=== PATIENT | male | born 1965 | race Caucasian/White ===

== ENCOUNTER 2024-07-21 14:39 | Outpatient (OUT) | payer OTHER, SELFPAY ==
[2024-07-21 15:09] LABS: Basophils Percent Auto 0.4 % (0.2-2.0); Eosinophils Absolute Auto 0.3 10^3/uL (0.0-0.7); Eosinophils Percent Auto 3.1 % (0.9-7.0); Hematocrit 48.5 % (42.0-54.0); Hemoglobin 16.3 g/dL (14.0-18.0); Immature Granulocytes Abs Auto 0.06 10^3/uL (0.00-0.03); Immature Granulocytes Pct Auto 0.7 % (0.0-0.5); Lymphocytes Absolute Auto 1.8 10^3/uL (1.2-3.8); Mean Corpuscular HGB Conc 33.6 g/dL (29.9-35.2); Mean Corpuscular Hemoglobin 28.4 pg (25.9-34.0); Mean Corpuscular Volume 84.6 fL (80.0-94.0); Mean Platelet Volume 9.5 fL (9.5-13.5); Monocytes Absolute Auto 0.7 10^3/uL (0.3-0.8); Monocytes Percent Auto 7.3 % (1.7-12.0); Neutrophils Absolute Auto 6.3 10^3/uL (1.4-6.5); Neutrophils Percent Auto 68.5 % (43.0-75.0); Platelet Count 207 10^3/uL (150-450); Red Blood Count 5.73 10^6/uL (4.70-6.10); Red Cell Distribution Width 12.8 % (11.0-15.0); White Blood Count 9.2 10^3/uL (4.0-11.0)
[2024-07-21 15:48] LABS: Alanine Aminotransferase 30 U/L (16-63); Albumin Globulin Ratio 1.2; Albumin Level 3.8 g/dL (3.4-5.0); Alkaline Phosphatase 83 U/L (46-116); Anion Gap 10.2; Aspartate Amino Transferase 17 U/L (15-37); Bilirubin Total 0.4 mg/dL (0.2-1.0); Calcium 8.6 mg/dL (8.5-10.1); Chloride 105 mmol/L (98-107); Chol HDL Ratio 4.3; Cholesterol 199 mg/dL (<=200); Estimated GFR (African America 54 (>=60 mL/min/1.73m^2); Estimated GFR (Non-African Ame 44 (>=60 mL/min/1.73m^2); Globulin 3.3 g/dL; Glucose 86 mg/dL (74-106); HDL Cholesterol 46 mg/dL (40-60); Potassium 4.2 mmol/L (3.5-5.1); Sodium 142 mmol/L (136-145); Thyroid Stimulating Hormone 1.882 uIU/mL (0.358-3.740); Total Protein 7.1 g/dL (6.4-8.2); Triglycerides 90 mg/dL (<=150)
[2024-07-21 15:54] LABS: BUN Creatinine Ratio 16.3
[2024-07-21 15:59] LABS: Prostate Specific Antigen Scrn 0.61 ng/mL (<=4.00)
== END 2024-07-21 14:40 | disposition home or self-care (01) ==
LOC: LAB 14:42
PROVIDERS: PCP Internal Medicine; Visit Provider Internal Medicine
DX: Z00.00 Encounter for general adult medical examination without abnormal findings (principal)
CPT/HCPCS: 36415; 80053; 80061; 84443; 85025; G0103

== ENCOUNTER 2024-07-26 07:54 | Outpatient (OUT) | payer OTHER, SELFPAY ==
--- NOTE | 2024-07-26 08:02 | US_ITS ---
The [address] [address] Patient Name: ABIOLA GOMES MRN: [id number] date: 1965 Sex: M Assigned Patient Location: US Current Patient Location: Accession/Order Number: [id number] Exam Date: 07/26/2024 08:05 Report Date: 07/28/2024 06:20 At the request of: BILLIE LANE Procedure: US renal BI EXAMINATION: US renal BI HISTORY: N18.9 CHRONIC KIDNEY DISEASE COMPARISON: No relevant comparison available. TECHNIQUE: Ultrasound examination was performed of the kidneys and urinary bladder. FINDINGS: RIGHT KIDNEY: No evidence of pelvocaliectasis, mass, or calculi. Normal parenchymal echogenicity. No significant cortical thinning. Color Doppler demonstrates blood flow within the kidney. Kidney: 10.3 x 4.6 x 5.0 cm LEFT KIDNEY: No evidence of pelvocaliectasis, mass, or calculi. Normal parenchymal echogenicity. No significant cortical thinning. Color Doppler demonstrates blood flow within the kidney. Kidney: 9.8 x 5.2 x 5.9 cm BLADDER: No visible wall thickening, mass, or calculi. Calcifications noted within prostate. US/US renal BI IMPRESSION: 1. No appreciable urinary tract mass, stones, or obstructive uropathy. 2. No significant cortical thinning. Electronically authenticated by: MISA IRVIN Date: 07/28/2024 06:20
[2024-07-26 09:10] LABS: Bilirubin Urine NEGATIVE (NEGATIVE); Blood Urine NEGATIVE (NEGATIVE); Clarity Urine CLEAR (CLEAR); Color Urine LT. YELLOW (YELLOW); Glucose Urine UA NEGATIVE (NEGATIVE); Ketones Urine NEGATIVE (NEGATIVE); Leukocyte Esterase Urine NEGATIVE (NEGATIVE); Nitrite Urine NEGATIVE (NEGATIVE); Protein Urine NEGATIVE (NEG/TRACE); Urobilinogen Urine 0.2 EU/dL (0.2-1.0)
[2024-07-26 09:17] LABS: Creatinine Urine Random 90.52 mg/dL (20.00-300.00)
[2024-07-26 09:30] LABS: Bacteria Urine TRACE #/HPF (NONE SEEN); Cast Seen? NONE SEEN #/LPF (NONE SEEN); Crystals Seen? None Seen #/HPF (None Seen); Mucus Urine NONE SEEN (NONE SEEN); RBC Urine 0-2 #/HPF (0-2); Squamous Epithelial Cell Urine RARE #/LPF (NONE/RARE); Urine Culture Indicated NO; WBC Urine NONE SEEN #/HPF (NONE SEEN)
[2024-07-26 09:31] LABS: Protein Creatinine Ratio Urine 0.11; Total Protein Urine Random 10.3 mg/dL (<=11.9)
== END 2024-07-26 07:55 | disposition home or self-care (01) ==
LOC: US 07:55
PROVIDERS: PCP Internal Medicine; Visit Provider Internal Medicine
DX: N18.9 Chronic kidney disease, unspecified (principal)
CPT/HCPCS: 76775; 81001; 82570; 84156

== ENCOUNTER 2025-01-07 09:14 | Outpatient (OUT) | payer OTHER, SELFPAY ==
--- OUTSIDE RECORDS SUMMARY | 2025-01-07 09:20 | XMS_ITS | CCD ---
Author Organization [facility] Care Team Providers Care Miner Placer Name Role Phone Moreno Ryan DO Primary Care Provider [phone] BETZY IYER Attending Unavailable CONNOR, MORENO Primary Care Unavailable SELF, SELF Referring Unavailable Moreno Ryan CONNOR, DR WISE Admitting Unavailable BALL, DR WISE Attending Unavailable BALL, DR WISE Primary Care Unavailable BALL, DR WISE Admitting Unavailable BALL, DR WISE Attending Unavailable BALL, DR WISE Primary Care Unavailable BALL, DR WISE Consulting Unavailable TIMMIS, DR CARY Admitting Unavailable TIMMIS, DR CARY Attending Unavailable BALL, DR WISE Primary Care Unavailable TIMMIS, DR CARY Consulting Unavailable BHAKTA, JESUS ALBERTO Consulting Moreno Frye MD Primary Care Provider Jesus Alberto Pagan DO Unavailable JESUS ALBERTO PAGAN Attending MORENO Frye Referring Unavailable ANA GR Attending Unavailable Allergies Allergy Classification Reported Allergen(s) Allergy Type Date of Onset Reaction(s) Facility (3 sources) false ragweed pollen extract / western ragweed pollen extract Drug Allergy 3 [facility] (2 sources) patient allergy list reviewed by nurse or physicia Propensity to adverse reactions 4 Comment:Done [facility] Other Medications Current Medications Medication Drug Class(es) Dates Sig (Normalized) Sig (Original) ALPRAZolam 0.25 mg oral tablet (4 sources) Benzodiazepine Start: 04-12-2023 take 1 tablet by mouth every twelve hours ALPRAZolam 0.25 MG 1 tablet Orally Twice a day for 30 days Mar, Active Start: 09-04-2022 take 1 tablet by ирина th every twelve hours ALPRAZolam 0.25 MG 1 tablet Orally Twice a day for 30 days Aug, Active 24 hr desvenlafaxine succinate 100 mg extended release oral tablet (5 sources) Serotonin and Norepinephrine Reuptake Inhibitor take 1 tablet by mouth once daily desvenlafaxine (Pristiq) 100 MG 24 hr tablet Take 100 mg by mouth Daily Do not crush, chew, or split. Active primidone 50 mg oral tablet (7 sources) Anti-epileptic Agent Start: End: take 1 tablet by mouth at bedtime primidone (Mysoline) 50 MG tablet Indications: Essential tremor Take 1 tablet (50 mg) by mouth at bedtime 30 tablet 1 09/25/2024 11/24/2024 Active Start: 08-27-2024 End: 09-25-2024 take 0.5 tablet by mouth at bedtime primidone (Mysoline) 50 MG tablet Indications: Essential tremor 1/2 tablet PO at bedtime 60 tablet 2 08/27/2024 09/25/2024 Discontinued (Dose adjustment) Completed/Discontinued Medications Medication Drug Class(es) Dates Sig (Normalized) Sig (Original) 1 ml dexamethasone phosphate 4 mg/ml injection (2 sources) Corticosteroid Start: 09-19-2022 End: 09-19-2022 dexAMETHasone (DECADRON) injection 4 mg 10 ml lidocaine hydrochloride 10 mg/ml injection (2 sources) Antiarrhythmic, Amide Local Anesthetic Start: 09-19-2022 End: 09-19-2022 Lidocaine (XYLOCAINE) 10 mg/mL injection 4 mL Suprep Bowel Prep Kit 17.5-3.13-1.6 GM/180ML (4 sources) Start: 07-17-2019 Suprep Bowel Prep Kit 17.5-3.13-1.6 GM/180ML 177 ML BOTTLE AT 4 PM AND ONE BOTTLE AT 11 PM DAY PRIOR TO PROCEDURE Orally Twice a day for 1 day(s) Jun, Not-Taking Problems Active Problems Problem Classification Problem Date Documented Date Episodic/Chronic Anxiety disorders (7 sources) Generalized anxiety disorder; Translations: [Generalized anxiety disorder] Onset: 08-14-2023 Chronic Headache; including migraine (8 sources) Migraine with aura; Translations: [Migraine with aura, not intractable, without status migrainosus] Onset: 09-22-2015 Chronic Hyperplasia of prostate (5 sources) Benign prostatic hyperplasia; Translations: [Benign prostatic hyperplasia without lower urinary tract symptoms] Chronic Mood disorders (2 sources) Major depressive disorder, recurrent, moderate; Translations: [Major depressive disorder. recurrent. moderate] Onset: 08-14-2023 Chronic Nutritional deficiencies (2 sources) Vitamin D deficiency; Translations: [Vitamin D deficiency, unspecified] Onset: 04-01-2014 Chronic Other connective tissue disease (3 sources) Disorder of rotator cuff; Translations: [Unspecified disorder of synovium and tendon, left shoulder] Episodic Other connective tissue disease (2 sources) Unspecified disorder of synovium and tendon, left shoulder; Translations: [Unspecified disorder of synovium and tendon, left shoulder] Onset: 09-19-2022 Episodic Other connective tissue disease (8 sources) Tendinitis of right rotator cuff; Translations: [Other shoulder lesions, right shoulder] Episodic Other connective tissue disease (2 sources) Mass of shoulder region; Translations: [Other shoulder lesions, right shoulder] Episodic Other ear and sense organ disorders (4 sources) Decreased hearing ; Translations: [Unspecified hearing loss, bilateral] Chronic Other ear and sense organ disorders (6 sources) Hearing loss; Translations: [Unspecified hearing loss, bilateral] Chronic Other ear and sense organ disorders (4 sources) Sensorineural hearing loss, bilateral; Translations: [SENSORINEURAL HEAR LOSS BILATERAL] Onset: 07-26-2022 Chronic Other hereditary and degenerative nervous system conditions (4 sources) Essential tremor; Translations: [Essential tremor] 08-27-2024 Chronic Other non-traumatic joint disorders (2 sources) Shoulder joint pain; Translations: [Pain in right shoulder] Episodic Other nutritional; endocrine; and metabolic disorders (6 sources) Obesity; Translations: [Obesity, unspecified] Chronic Other nutritional; endocrine; and metabolic disorders (6 sources) Body mass index 30+ - obesity; Translations: [Obesity, unspecified] Onset: 09-22-2015 Chronic Other nutritional; endocrine; and metabolic disorders (2 sources) Obese class I; Translations: [Body mass index (BMI) 32.0-32.9, adult] Onset: 09-22-2015 Chronic Other nutritional; endocrine; and metabolic disorders (4 sources) Body mass index 25-29 - overweight; Translations: [Overweight] Episodic Other nutritional; endocrine; and metabolic disorders (1 source) Overweight Episodic Other nutritional; endocrine; and metabolic disorders (2 sources) Overweight; Translations: [Overweight] Episodic Other screening for suspected conditions (not mental disorders or infectious disease) (11 sources) Decreased testosterone level ; Translations: [Other specified abnormal findings of blood chemistry] Onset: 11-16-2021 Episodic Other upper respiratory disease (2 sources) Seasonal allergic rhinitis; Translations: [Other seasonal allergic rhinitis] Onset: 09-22-2015 Chronic Sprains and strains (1 source) Strain of unspecified muscle, fascia and tendon at shoulder and upper arm level, left arm, initial encounter Episodic Past or Other Problems Problem Classification Problem Date Documented Da te Episodic/Chronic Acute bronchitis (2 sources) Acute bronchitis; Translations: [Acute bronchitis, unspecified] Onset: 11-05-2014 Episodic Other nutritional; endocrine; and metabolic disorders (2 sources) Simple obesity ; Translations: [Other obesity due to excess calories] Resolved: 01-27-2020 Chronic Other upper respiratory infections (2 sources) Acute sinusitis; Translations: [Acute sinusitis, unspecified] Onset: 11-05-2014 Episodic Results Test Name Value Interpretation Reference Range Facil ity XR Shoulder - left 2 Viewson 11-28-2022 IMPRESSION: Sequela of chronic rotator cuff pathology. Status post prior distal clavicular resection and labral repair. OLOGY EXAM: XR SHOULDER LE FT 3 VIEWS, 11/28/2022 09:30 AM CLINICAL INDICATIONS: l rc pain, hx of labral surgery RELEVANT CLINICAL HISTORY: M67.912:Dysfunction of left rotator cuff COMPARISON: No prior studies available for comparison. FINDINGS: 3 images obtained. Soft Tissue: No soft tissue swelling evident. Bone: No acute fracture identified. Cortical irregularity of the greater tuberosity is evident. Status post distal clavicular resection. Hypertrophic changes along the glenoid. Joint: Glenohumeral joint is anatomic. RADIOLOGY Shade Kaur DO - 11/28/2022 EXAM: XR SHOULDER LEFT 3 VIEWS, 11/28/2022 09:30 AM CLINICAL INDICATIONS: l rc pain, hx of labral surgery RELEVANT CLINICAL HISTORY: M67.912:Dysfunction of left rotator cuff COMPARISON: No prior studies available for comparison. FINDINGS: 3 images obtained. Soft Tissue: No soft tissue swelling evident. Bone: No acute fracture identified. Cortical irregularity of the greater tuberosity is evident. Status post distal clavicular resection. Hypertrophic changes along the glenoid. Joint: Glenohumeral joint is anatomic. IMPRESSION IMPRESSION: Sequela of chronic rotator cuff pathology. Status post prior distal clavicular resection and labral repair. [facility] Radiology Study observation (narrative) [facility] XR Shoulder - left 2 ViewsOr dered By: Shade Kaur on 11-28-2022 [facility] Work Phone: LARGE JOINT/BURSA INJECTION AND/OR ASPIRATION: L subacromial bursaon 09-19-2022 Betzy Iyer MD 09/19/2022 10:15 AM LARGE JOINT/BURSA INJECTION AND/OR ASPIRATION: L subacromial bursa Date/Time: 09/19/2022 9:00 AM Supporting Documentation Indications: pain Procedure Details: Location: shoulder - L subacromial bursa Needle size: 22 G Approach: posterior Medication Verification: I have personally verified and performed the final check of the medication(s) used in this procedure prior to administration. The following items were included during the verification process for medication(s) administered: drug name, strength, volume, expiration, physical integrity and appearance of the medication(s). Medications administered: 4 mg dexamethasone 4 MG/ML; 4 mL lidocaine 10 mg/mL Patient tolerance: patient tolerated the procedure well with no immediate complications Consent: Consent was obtained prior to the procedure after discussion of the risks, benefits and alternatives, and expected outcomes were discussed with the patient. The possibilities of reaction to medication, bleeding, infection, the need for additional procedures, failure to diagnosis a condition, and creating a complication requiring operation were discussed with the patient. The patient concurred with the proposed plan, giving consent. Preparation: Patient was prepped in the usual sterile fashion. The patient was prepped with Chloraprep. [facility] Radiology Study observation (narrative) [facility] MRI BRAIN WO W CONon 023 MRI BRAIN WO W CON MRI BRAIN WO W CON 07/26/2022 12:26 PM EST Provided History: Sensorineural hearing loss Comparison: None Technique: Axial diffusion-weighted with ADC map, T2-weighted, turboFLAIR and T1-weighted images of the brain and axial T1-weighted and coronal T2-weighted with fat saturation images centered on the internal auditory canals were obtained without intravenous contrast. Following intravenous administration of gadolinium, axial turboFLAIR images of the brain and axial T1-weighted with fat saturation and coronal T1-weighted images centered on the internal auditory canals were obtained. Contrast: 14 mL Dotarem Findings: No abnormal signal or enhancement along the course of the seventh and eighth cranial nerves on either side. Vestibular and auditory structures exhibit normal signal on T2-weighted images and no abnormal enhancement. Images of the whole brain demonstrate no mass lesion, no mass effect, or midline shift. No intracranial hemorrhage on susceptibility-weighte d images. There is no restricted diffusion. Ventricles are proportionate to the cerebral sulci. No abnormal enhancement. Minimal, punctate foci of T2/FLAIR hyperintensity predominantly seen in the subcortical white matter of the supratentorial brain, for example the right anterior frontal lobe on image 18 in the left frontal lobe on image 20. Impression: Normal brain MRI of the IAC with and without IV contrast.. Minimal scattered subcortical punctate foci of T2/FLAIR hyperintensities at a be seen with small vessel ischemic change. Electronically authenticated by: JESUS ALBERTO BHAKTA Date: 2022-07-26 13:50 Normal [facility] TESTOSTERONE, TOTALon 2021 Testosterone [Mass/Vol] 529 ng/dL Normal [id number] [facility] Comment on above: Result Comment: Adul t male reference interval is based on a population of healthy nonobese males (BMI <30) between 19 and 39 years old. Won et.al. JCEM 2017,102;9903-7429. PMID: [id number]. Performed By: #### T ESTTOT #### [facility] [address] [place] [address] Dr. Hector Monroe Vital Signs Date Time Vital Sign Value Performing Clinician Rylan fernández 09-25-2024 10:12-0500 Body mass index (BMI) [Ratio] 30.34 kg/m2 Ana Gr NP Work Phone: [facility] 09-25-2024 10:12-0500 Body weight 85.28 kg Ana Gr ASSISTANT PORTFOLIO MANAGER Work Phone: [facility] 09-25-2024 10:12-0500 Diastolic blood pressure 90 mm[Hg] Ana Gr ASSISTANT PORTFOLIO MANAGER Work Phone: [facility] 09-25-2024 10:12-0500 Heart rate 112 /min Ana Gr ASSISTANT PORTFOLIO MANAGER Work Phone: [facility] 09-25-2024 10:12-0500 SaO2% (BldA) [Mass fraction] 98 % Ana Gr ASSISTANT PORTFOLIO MANAGER Work Phone: [facility] 09-25-2024 10:12-0500 Systolic blood pressure 142 mm[Hg] Ana Gr ASSISTANT PORTFOLIO MANAGER Work Phone: [facility] 08-27-2024 08:24-0500 Body mass index (BMI) [Ratio] 30.57 kg/m2 Christopher Latasha DO Work Phone: [facility] 08-27-2024 08:24-0500 Body weight 85.91 kg Christiraer Latasha DO Work Phone: [facility] 08-27-2024 08:24-0500 Diastolic blood pressure 88 mm[Hg] Christopher Latasha DO Work Phone: [facility] 08-27-2024 08:24-0500 Heart rate 74 /min Christiraer Latasha DO Work Phone: [facility] 08-27-2024 08:24-0500 SaO2% (BldA) [Mass fraction] 98 % Christopher Latasha DO Work Phone: [facility] 08-27-2024 08:24-0500 Systolic blood pressure 138 mm[Hg] Christopher Latasha DO Work Phone: [facility] 08-15-2022 10:30-0500 Body height 167.64 cm Moreno Ball Other [facility] Other 08-15-2022 10:30-0500 Body mass index (BMI) [Ratio] 26.14 kg/m2 Moreno Ball Other [facility] Other 08-15-2022 10:30-0500 Body weight 73.48 kg Moreno Ball Other [facility] Other 08-15-2022 10:30-0500 Diastolic blood pressure 84 mm[Hg] Moreno Ball Other [facility] Other 08-15-2022 10:30-0500 Respiratory rate 12 /min Moreno Ball Other [facility] Other 08-15-2022 10:30-0500 Systolic blood pressure 122 mm[Hg] Moreno Ball Other [facility] Other Encounters Encounter Date Encounter Type Care Provider Facility Start: 09-25-2024 End: 09-25-2024 Bamboo flowsheet Ana Brayoll ASSISTANT PORTFOLIO MANAGER Work Phone: [facility] Start: 09-25-2024 End: 09-25-2024 Bamboo flowsheet Ana Baldemar ASSISTANT PORTFOLIO MANAGER Work Phone: [facility] Start: 09-25-2024 End: 09-25-2024 Office outpatient visit 25 minutes Ana Brayoll ASSISTANT PORTFOLIO MANAGER Work Phone: [facility] Comment on above: Essential tremor Start: 09-25-2024 End: 09-25-2024 ambulatory ANA GR Not Available Start: 08-27-2024 End: 08-27-2024 Bamboo flowsheet Christopher Latasha DO Work Phone: [facility] Start: 08-27-2024 End: 08-27-2024 Bamboo flowsheet Christopher Latasha DO Work Phone: [facility] Start: 08-27-2024 End: 08-27-2024 Office outpatient new 45 minutes Jesus Alberto Pagan DO Work Phone: [facility] Comment on above: Essential tremor (Pr imary Dx) Start: 08-27-2024 End: 08-27-2024 ambulatory JESUS ALBERTO PAGAN Not Available Start: 08-14-2023 End: 06-03-2024 ambulatory Felicita Start: 06-01-2023 End: 06-01-2023 ambulatory Moreno Ryan Other [facility] Other Start: 06-01-2023 Telephone encounter Moreno [facility] Start: 04-12-2023 End: 04-12-2023 ambulatory Moreno Ryan Other [facility] Other Start: 04-12-2023 Patient encounter procedure [facility] Start: 04-12-2023 Telephone encounter [facility] Start: 11-28-2022 End: 11-28-2022 Subsequent hospital visit by physician Betzy Iyer MD Work Phone: [facility] Comment on above: Arrived Start: 11-28-2022 End: 11-28-2022 Office outpatient visit 15 minutes Betzy Iyer MD Work Phone: [facility] Comment on above: Dysfunction of left rotator cuff (Primary Dx) Start: 11-01-[address] MORENO RYAN Facili ty:[facility] Start: 09-19-2022 ambulatory BETZY IYER Facility :[facility] Start: 09-19-2022 End: 09-19-2022 Office outpatient new 30 minutes Betzy Iyer MD Work Phone: [facility] Comment on above: Dysfunction of left rotator cuff (Primary Dx) Start: 09-04-2022 End: 09-04-2022 ambulatory Moreno Ryan Other [facility] Other Start: 09-04-2022 Patient encounter procedure [facility] Start: 09-04-2022 Telephone encounter Moreno [facility] Start: 08-15-2022 End: 08-15-2022 ambulatory Moreno Ryan Other [facility] Other Start: 08-15-2022 Patient encounter procedure Moreno Ryan [facility] Start: 08-15-2022 Periodic preventive med est patient 40-64yrs Moreno Ryan [facility] Start: 08-04-2022 Patient encounter status Moreno Ryan Other [facility] Other Start: 07-26-2022 End: 07-27-[address] RAEANN DAVILA Facility:[facility] Start: 11-16-2021 End: 11-17-2021 ambulatory MORENO CONNOR Facility:[facility] Start: 08-09-2021 Adult health examination Moreno Ryan Other [facility] Other Procedures Date Procedure Procedure Detail Performing Clinician Start: 11-28-2022 Radex shoulder compl ete minimum 2 views Betzy Iyer MD Work Phone: Start: 09-19-2022 Arthrocentesis aspir &/inj major jt/bursa w/o us Betzy Iyer MD Work Phone: Start: 01-31-2017 General examination of patient Moreno Ryan Other Depression screening Jesus Alberto Ryan Other Screening for malign ant neoplasm of colon Moreno Ryan Other Plan of Treatment Date Care Activity Detail Author Start: 03-21-2029 Tetanus vaccination TETANUS U [facility] Start: 12-16-2024 End: 12-16-2024 Patient encounter procedure 12/16/2024 10:40 AM EDT Office Visit [facility] [address] [place] [phone] Ana Gr NP [address] [place] [phone] [facility] Start: 09-25-2024 End: 09-25-2024 Patient encounter procedure [facility] Comment on above: Arrived Start: 08-27-2024 End: 08-27-2024 Patient encounter procedure 08/27/2024 8:30 AM EST Office Visit [facility] [address] [place] [phone] Jesus Alberto Pagan DO [address] [place] [address] Arrived [facility] Comment on above: Arrived Start: 03-23-2023 Influenza vaccination INFLUENZ A VACCINE (Season Ended) [facility] Start: 12-14-2022 End: 12-14-2022 Patient encounter procedure 12/14/2022 Appointment Magnetic Resonance Imaging Betzy Iyer MD [address] [place] [address] [facility] Start: 11-28-2022 End: 11-29-2023 MR Shoulder - left WO contrast MRI SHOULDER LEFT WITHOUT CONTRAST Imaging Routine Dysfunction of left rotator cuff Expected: 11/28/2022, Expires: 11/29/2023 [facility] Comment on above: Expected: 11/28/2022 , Expires: 11/29/2023 Start: 03-23-2022 Influenza vaccination INFLUENZA VACC INE (#1) [facility] Start: 2015 Prostate specific antigen measurement PROSTATE CANCER SCREENING DISCUSSION [facility] Start: 2015 Zoster vaccine hzv l carmen for subcutaneous use ZOSTER (SHINGLES) VACCINE (1 of 2) [facility] Start: 2010 Screening for malign ant neoplasm of colon COLORECTAL CANCER SCREENING DISCUSSION [facility] Start: 2005 Lipid panel LIPID SCREENING [facility] Start: 1980 HIV screening HIV SCREENING DISCUSSION [facility] Start: 1965 COVID-19 VACCINE (#1) COVID-19 VACCI NE (#1) [facility] Start: 1965 Hepatitis C screening HEPATITI S C VIRUS SCREENING [facility] Start: 1965 Screening for malign ant neoplasm of colon [facility] Payers Date Payer Category Payer Private Health Insurance [employer] [id number] 2018 Unknown [employer] M MO [id number] 2018-Present [address] [place] [address] [id number] 1965 Unknown [id number] 1965 Unknown [id number] 1965 Unknown [id number] 1965 Unknown [id number] 1965 Unknown [id number] 1965 Unknown [id number] 1959 Self-pay [id number] 1959 Unknown [id number] Social History Date Type Detail Facility Tobacco smoking status AKIS Tobacco smoking consumption unknown [facility] Start: 1965 Sex Assigned At Not on file [facility] Start: 09-09-2022 End: 09-19-2022 Exposure to SARS-CoV-2 (event) Unable to assess [facility] Start: 09-25-2024 Sex Assigned At N [facility] Other Start: 09-25-2024 Tobacco smoking status NHIS Ex-smoker [facility] History of tobacco use Current smoker [facility] History of tobacco use Cigarette Smoker [facility] Start: 09-25-2024 Tobacco use and exposure Former smokeless tobacco user [facility] Start: 09-25-2024 Alcoholic beverage intake Current drinker of alcohol (finding) [facility] Start: 09-25-2024 History of Social function [facility] Clinical Notes 08-15-2022 to 09-25-2024 Patient InstructionsJesus Alberto Pagan DO - 08/27/2024 8:30 AM EST Note Date & Type Note Facility 09-25-2024 Instructions Ana Gr NP - 09/25/2024 10:20 AM EST Increase primidone to 50 mg by mouth once daily at bedtime documented in this encounter [facility] 08-27-2024 History of Presen t illness Narrative Images from the original note were not included. Chief complaint: Tremor Subjective Awais Gomes, 59 y.o., male Patient presents today for a neurologic consult at the request of Dr. Ryan for resting tremor. Patient states his tremor is located in bilateral hands and left leg and foot. He has had the hand tremor his whole life and the leg started about one year ago. This is not constant but almost all the time. He denies any weakness in his hands or leg. He notices this more when he is active at work or when he is driving. He does not notice any triggers that make this worse. He has not tried any medication for this but does note he was on vraylor previously which made his tremor much worse. He states his mother does have the same bilateral hand tremor. Review of Systems Constitutional: Negative for appetite change, fatigue and fever. Respiratory: Negative for cough, shortness of breath and wheezing. Cardiovascular: Negative for chest pain, palpitations and leg swelling. Gastrointestinal: Negative for abdominal pain, constipation, diarrhea and nausea. Musculoskeletal: Negative for arthralgias, gait problem and myalgias. Neurological: Positive for tremors. Negative for dizziness, numbness and headaches. No past medical history on file. Past Surgical History: Procedure Laterality Date FL GUIDED ASPIRATION OR INJECTION LARGE JOINT BILATERAL Bilateral 09/19/2022 FL GUIDED ASPIRATION OR INJECTION LARGE JOINT BILATERAL No family history on file. Social History Tobacco Use Smoking status: Not on file Smokeless tobacco: Not on file Substance Use Topics Alcohol use: Not on file Allergies: Patient has no known allergies. Vitals: 08/27/24 0824 BP: 138/88 Pulse: 74 SpO2: 98% Body mass index is 30.57 kg/m . weight: 189 lb 6.4 oz Neurologic exam: Mental status: Awake, alert to person, place and time. Recent and remote memory are intact. Language is fluent without aphasia. Attention and concentration are normal. Fund of knowledge is appropriate for level of education. Cranial nerves: CN II: Visual acuity is normal. Visual alvares full to confrontation. CN III, IV, : pupils equal round and reactive to light. Extraocular movements intact. No ptosis present. CN V: Facial sensation is normal. CN VII: Full and symmetric facial movement. CN VIII: Hearing is normal to finger rub bilaterally: CN IX and X: Palate elevates symmetrically. CN XI: Shoulder shrug is normal bilaterally. CN XII: Tongue is midline without atrophy or fasciculation. Motor: RUE Strength deltoid, , biceps , triceps , wrist extensors , wrist flexor , partition making machine operator strength 5/5. LUE Strength deltoid , biceps , triceps , wrist extensors , wrist flexor , partition making machine operator strength 5/5. RLE Strength illopsoas, quadriceps, tibialis anterior, and gastrocnemius strength 5/5. LLE Strength illopsoas, quadriceps, tibialis anterior, and gastrocnemius strength 5/5. Normal tone x4 extremities. Bulk is normal. Sensory: Sensation is intact to light touch throughout Four extremities. Reflexes: RUE biceps reflex 2+ brachioradialis reflex 2+ . LUE biceps reflex 2+ brachioradialis reflex 2+ . RLE knee reflex 2+ . LLE knee reflex 2+ . Colby's sign negative. Coordination: Nagthq-tm-oine testing and rapid alternating movements are normal Gait: Normal Review and summary of old records: MRI of the brain with and without contrast internal auditory canal protocol on 07/26/2022:Normal brain MRI of the IAC with and without IV contrast.. Assessment/Plan Diagnoses and all orders for this visit: Essential tremor It is my impression that the patient has essential tremor which affects the right greater than left upper extremity and also seems to affect the lower extremity. I also noted it of the head and jaw during examination. MRI in 2022 did not yield any intracranial pathology that would be responsible for this. I am not convinced of any other parkinsonian signs or symptoms on examination. The patient does have a family history of tremor as well. Plan: Start primidone 25 mg p.o. q.h.s.. Side effects discussed in detail. Patient understands and wishes to proceed. We did talk about the fact that the medication he is on, Pristiq, may be acting as a central nervous system stimulant and may in some ways be exacerbating his tremor. We also discussed alternative options such as propranolol. Given the potential side effects for erectile dysfunction we opted to start with primidone 1st. Pt has been fully educated on their diagnosis, lab results, treatment options, follow up plan, and return instructions documented in this encounter [facility] 04-12-2023 Evaluation note Encounter Date Diagnosis Assessment Notes Mar, Annual physical exam (ICD-10 - Z00.00) Cuff-Protect Other 05-09-2023 History of Present illness Narrative* Betzy Iyer MD - 11/28/2022 8:45 AM EDT Sports Medicine Clinic Note Chief complaint / reason for referral: Chief Complaint Patient presents with Left Shoulder - Pain Pt reports CSI has worn off and they have not had benefits from PT. Denies accidents or new injuries. S/s and location of pain is the same. History: Follow up left shoulder. Corticosteroid injection only two weeks relief. Doing physical therapy closer to home. Did some stim treatment which led to muscle spasms. feels hereached a plateau. Has not been able to lift weights Work status / activity level: very active with weightlifting in past, fishing Current medications / treatments for this condition: Advil, ice/heat, heat helps Prior history of shoulder injury: Yes weightlifting injuries Prior shoulder surgery: Yes labrum repair, biceps tendons repairs, arthroscopy Recent imaging (past 1 year): No No past medical history on file. PmHX: 1. Anxiety Past Surgical History: Procedure Laterality Date SHOULDER SURGERY Bilateral 08/30/2012 4 surgeries bilateral shoulders and bilateral biceps started 20 years (most recent date approximate) Physical Examination: left shoulder: Muscle atrophy: no Range of motion: Forward flexion 180 degrees with pain, abduction 180 degrees Strength: Supraspinatus 5-/5, external rotation 5/5, internal rotation 5/5 No pain to palpation of AC joint, no pain to palpation of bicipital groove Trapezius muscle belly Negative Painful arc of motion: Positive ER Lag: Negative Cross Arm: Negative Lift off test: Negative Imaging: Xrays obtained and viewed of left shoulder -- status post distal clavicular resection, rotator cufftendinopathy Assessment and Plan: ICD-10-CM 1. Dysfunction of left rotator cuff M67.912 XR SHOULDER LEFT MIN 2 VIEWS MRI SHOULDER LEFT WITHOUT CONTRAST No lasting relief with corticosteroid injection or two months physical therapy. X-ray without significant glenohumeral osteoarthritis, will follow up with MRI. mychart with results. Orders Placed This Encounter XR SHOULDER LEFT MIN 2 VIEWS MRI SHOULDER LEFT WITHOUT CONTRAST [facility]zy Iyer MD [facility] History of Present illness Narrative* David Pichardo - 09/19/2022 9:00 AM ESTSummary: Med Student Note Sports Medicine Clinic Note Chief complaint / reason for referral: Chief Complaint Patient presents with Left Shoulder - Pain History: This is a pleasant 57 y.o. year old bilateral handed male who presents with left shoulder pain as areferral from Self, Self. Symptoms have been present about a month. Reports sudden mechanism of injury while doing a rotational stretch of the left shoulder. The pain is located posterior and is worse with abduction and pronation. He has some pain with reaching above his head, no pain reaching behind his back. There is some pain at night when sleeping that wakes him. Work status / activity level: very active with weightlifting Current medications / treatments for this condition: Advil, ice/heat, heat helps Prior history of shoulder injury: Yes weightlifting injuries Prior shoulder surgery: Yes labrum repair, biceps tendons repairs, arthroscopy Recent imaging (past 1 year): No No past medical history on file. PmHX: 1. Anxiety Meds (pt reported): Xanax .25 at night Pristique 75 mg daily Past Surgical History: Procedure Laterality Date SHOULDER SURGERY Bilateral 08/30/2012 4 surgeries bilateral shoulders and bilateral biceps started 20 years (most recent date approximate) Social History Tobacco Use Smoking status: Not on file Smokeless tobacco: Not on file Substance Use Topics Alcohol use: Not on file Physical Examination: There were no vitals taken for this visit. There is no height or weight on file to calculate BMI. Constitutional: Normal development and normal body habitus. left shoulder: Muscle atrophy: no Range of motion: Forward flexion 180 degrees with little pain, abduction 180 degrees with little veronica pain, IRN sacral , ROGE 60 degrees. Strength: Supraspinatus 4/5, external rotation 4/5, internal rotation 5/5 No pain to palpation of AC joint, no pain to palpation of bicipital groove Trapezius muscle belly Negative Neer s: Positive Hawkin's: Positive Painful arc of motion: Positive ER Lag: Negative Cross Arm: Negative Lift off test: Negative Imaging: None Assessment and Plan: ICD-10-CM 1. Dysfunction of left rotator cuff M67.912 AMB REFERRAL TO PHYSICAL THERAPY LARGE JOINT/BURSA INJECTION AND/OR ASPIRATION: L subacromial bursa Discussed treatment options with patient including further workup with xray and MRI, physical therapy, medications and/or steroid injection. Patient agreed to steroid injection today and beginning physical therapy, he was comfortable holding off on imaging. Follow up: 8 weeks via mychart Orders Placed This Encounter LARGE JOINT/BURSA INJECTION AND/OR ASPIRATION: L subacromial bursa AMB REFERRAL TO PHYSICAL THERAPY David Pichardo * Betzy Iyer MD - 09/19/2022 9:00 AM ESTAssociated Order(s): LARGE JOINT/BURSA INJECTION AND/OR ASPIRATION: L subacromial bursa Post-Procedure Diagnose(s): Dysfunction of left rotator cuff I was present with a medical student who participated in the care of this patient and prepared the note. I saw and evaluated the patient, and discussed the case with the resident or medical student. I re-performed the physical exam as documented. I was present during medical decision-making. I havereviewed the note and agree with the content and plan as written, and have verified all sections documented by the medical student as noted. Betzy Iyer MD LARGE JOINT/BURSA INJECTION AND/OR ASPIRATION: L subacromial bursa Date/Time: 09/19/2022 9:00 AM Supporting Documentation Indications: pain Procedure Details: Location: shoulder - L subacromial bursa Needle size: 22 G Approach: posterior Medication Verification: I have personally verified and performed the final check of the medication(s) used in this procedure prior to administration. The following items were included during the verification process for medication(s) administered: drug name, strength, volume, expiration, physical integrity and appearance of the medication(s). Medications administered: 4 mg dexamethasone 4 MG/ML;4 mL lidocaine 10 mg/mL Patient tolerance: patient tolerated the procedure well with no immediate complications Consent: Consent was obtained prior to the procedure after discussion of the risks, benefits and alternatives, and expected outcomes were discussed with the patient. The possibilities of reaction to medication, bleeding, infection, the need for additional procedures, failure to diagnosis a condition, and creating a complication requiring operation were discussed with the patient. The patient concurred with the proposed plan, giving consent. Preparation: Patient was prepped in the usual sterile fashion. The patient was prepped with Chloraprep. [facility]* Patient Instructions* Betzy Iyer MD - 09/19/2022 9:00 AM EST POST INJECTION INSTRUCTIONS Thank you for coming in today. You have been given a corticosteroid injection. The goal of this is to relieve pain through numbing effects and reducing inflammation. The result and length of relief from the injection varies for everyone. The numbing medicine (lidocaine) will last approximately 4 hours, while the steroid can take up to 5 days to fully start working. Content: The injection consists of numbing agent, lidocaine, in addition to a corticosteroid. Post Injection Care: Apply ice to the area that was injected for 20 minutes at a time, intermittently for the next 2 days. Please allow at least 1-2 hours between icing until the skin returns to normal temperature and color. Please refrain from strenuous activities for the next 3 days. This will help alleviate any discomfort from the injection and help prevent a post injection flare-up . Possible Side Effects: Very few people may experience increased discomfort for a few days after the injection. This is typically called a post injection flare-up. Other possible side effects include injection site tenderness, mild soreness, swelling, warmth or redness, infection (<1% chance associated with any procedure). If you are a diabetic, watch for increased sugar readings over the next week. If you experience the following symptoms, please call our office: -Fever over 100 degrees -Significantly increased redness or warmth -Excessive swelling -Drainage [facility] Evaluation note * Encounter Date Diagnosis Assessment Notes Treatment Notes Treatment Clinical Notes Aug, Annual physical exam (ICD-10 - Z00.00) Cuff-Protect Other 01-24-2023 Evaluation note* Encounter Date Diagnosis Assessment Notes Treatment Notes Treatment Clinical Notes Jul, Annual physical exam (ICD-10 - Z00.00) Healthy diet and exercise. Reviewed age-appropriate preventive testing recommended. Jul, Generalized anxiety disorder (ICD-10 - F41.1) Healthy diet, exercise and proper sleep routine Jul, Overweight (BMI 25.0-29.9) (ICD-10 - E66.3) This patient has been instructed on a low-fat, high-fiber diet. They are instructed to reduce calories, portion sizes and snacks. It is recommended that they exercise for 30 minutes, 3-5 times weekly. He has lost 30lbs over the past year Jul, Benign prostatic hyperplasia without lower urinary tract symptoms (ICD-10 - N40.0) Yearly PSA and ZULMA Jul, Strain of left shoulder, initial encounter (ICD-10 - S46.912A) ROM exercises, ice/heat and Voltaren Jul, Screening PSA (prostate specific antigen) (ICD-10 - Z12.5) Cuff-Protect Other Evaluation note* Diagnosis Dysfunction of left rotator cuff- Primary [facility] Diagnosis Dysfunction of left rotator cuff- Primary Dysfunction of left rotator cuff [facility]* Diagnosis Dysfunction of left rotator cuff [facility]No [facility] [employer] Other Evaluation note* Diagnosis Essential tremor- Primary [facility] Diagnosis Essential tremor [facility] N[facility]ative - Reported* Type Description Date Medical History Decreased hearing, bilateral Medical History Migraine with aura a nd without status migrainosus, not intractable Medical History Generalized anxiety disorder Medical History Low testosterone in male Medical History Right rotator cuff tendinitis Medical History Obesity Surgical History right biceps tendon repair Surgical History left biceps tendon repair Hospitalization History see surgical history [facility] [employer] Other Reason for referral (narrative)* Consultation (Routine) - Patient to Arrange Specialty Diagnoses / Procedures Referred By Jagjit marroquin Referred To Contact Sports Ortho and Primary Care Sports Diagnoses Dysfunction of left rotator cuff Betzy Iyer MD [address] [place] [address] [place] [address] Referral ID Status Reason Start Date Expiration Date V isits Requested Visits Authorized [id number] Patient to Arrange 09/19/2022 10/14/2023 1 1 Scheduling Instructions [facility] [address] [facility] [place] [address] Fax [facility] (Neck and Back Therapy) [address] [place], [place] [address] FAX [facility] [address] [place] [address] FAX Outpatient [facility] [place] [address] [facility] [address] [place] [address] FAX [facility] [place] [address] [place] [address] FAX [facility] Therapy at [facility] [address] [place] [address] FAX [facility] [address] [place], [place] [address] FAX Continued on next page Outpatient Rehabilitation Outpatient Care [address] [place] [address] FAX [facility] [address] [place] [address] FAX [facility] for visit Narrative* Consultation (Routine) - Closed Specialty Diagnoses / Procedures Referred By Jajgit marroquin Referred To Contact Neurology Diagnoses Essential tremor Procedures [place] OFFICE/OUTPATIENT [facility] 30 MINUTES Moreno Ryan MD [address] [place] [address] Phone: tel: fax: Jesus Alberto Pagan DO [address] [place] [address] Phone: tel: fax: Referral ID Status Reason Start Date Expiration Date V isits Requested Visits Authorized [id number] Closed Consult and Treat 07/28/2024 01/24/2025 1 1 [facility] Summary Purpose Family History No Family History Records FoundNo Family History Records FoundNo Family History Records FoundNo Family History Records Found Advance Directives No Advanced Directives Records FoundNo Advanced Directives Records FoundNo Advanced Directives Records FoundNo Advanced Directives Records Found Reason for Referral Specialty Diagnoses / Procedures Referred By Jagjit marroquin Referred To Contact Diagnoses Dysfunction of left rotator cuff Procedures MRI SHOULDER LEFT WITHOUT CONTRAST [place] MRI, JOINT UPPER EXTREM Betzy Iyer MD [address] [facility] [address] [place] [address] Referral ID Status Reason Start Date Expiration Date V isits Requested Visits Authorized [id number] New Request 11/28/2022 12/23/2023 1 1 Additional Source Comments Reason for Visit (unrecogniz ed section and content) Reason Comments Pain Specialty Diagnoses / Procedures Referred By Contac t Referred To Contact Internal Medicine / Sports Medicine Procedures NEW PATIENT Self, Self Betzy Iyer MD [address] [facility] [address] [place] [address] Referral ID Status Reason Start Date Expiration Date V isits Requested Visits Authorized [id number] New Request 09/19/2022 10/14/2023 1 1 Reason Comments Pain Pt reports CSI has w orn off and they have not had benefits from PT. Denies accidents or new injuries. S/s and location of pain is the same. Reason Comments Tremors Care Teams (unrecognized sec tion and content) Miner Placer Relationship Specialty Start Date End Date Moreno Ryan, [address] [place] [address] PCP - General Internal Medicine 09/19/22 Miner Placer Relationship Specialty Start Date End Date Moreno Ryan, DO [address] [place] [address] PCP - General Internal Medicine 09/19/22 Miner Placer Relationship Specialty Start Date End Date Moreno Ryan, DO [address] [place] [address] PCP - General Internal Medicine 09/19/22 Miner Placer Relationship Specialty Start Date End Date Moreno Ryan MD [address] [place] [address] PCP - General Internal Medicine 07/31/24 Jesus Alberto Pagan DO [address] [place] [address] Referring Physician Neurology 08/27/24 Miner Placer Relationship Specialty Start Date End Date Moreno Ryan MD [address] [facility] [place] [address] PCP - General Internal Medicine 07/31/24 Jesus Alberto Pagan DO [address] [address] Referring Physician Neurology 08/27/24 Miner Placer Relationship Specialty Start Date End Date Moreno Ryan MD [address] [facility] [place] [address] PCP - General Internal Medicine 07/31/24 Jesus Alberto Pagan DO [address] [address] Referring Physician Neurology 08/27/24 Miner Placer Relationship Specialty Start Date End Date Moreno Ryan MD [address] [place] [address] PCP - General Internal Medicine 07/31/24 Jesus Alberto Pagan DO [address] [address] Referring Physician Neurology 08/27/24 (unrecognized sect ion and content) No Status Records FoundNo Status Records FoundNo Status Records FoundNo Status Records Found INFORMATION SOURCE (unrecogn ized section and content) DATE CREATED AUTHOR 09/20/2022 [facility] DATE CREATED AUTHOR AUTHOR'S ORGANIZ ATION 11/01/2022 [facility] DATE CREATED AUTHOR AUTHOR'S ORGANIZ ATION 06/05/2024 [facility] DATE CREATED AUTHOR AUTHOR'S ORGANIZ ATION 09/27/2024 [facility] EPIC FOR RECORDS PERTAINING TO PATIENTS WHO ARE OR HAVE BEEN ENROLLED IN A CHEMICAL DEPENDENCY/SUBSTANCEABUSE PROGRAM, SOME INFORMATION MAY BE OMITTED. This clinical summary was aggregated from multiple sources. Caution should be exercised in using it in the provision of clinical care. This summary normalizes information from multiple sources, and as a consequence, information in this document may materially change the coding, format and clinical context of patient data. In addition, data may be omitted in some cases. CLINICAL DECISIONS SHOULD BE BASED ON THE PRIMARY CLINICAL RECORDS. [facility] [employer] [facility]. provides no warranty or guarantee of the accuracy or completeness of information in this document.
[2025-01-07 10:22] LABS: Anion Gap 14.4; BUN Creatinine Ratio 20.5; Calcium 9.1 mg/dL (8.5-10.1); Carbon Dioxide 26.9 mmol/L (21.0-32.0); Chloride 101 mmol/L (98-107); Estimated GFR (African America >60 (>=60 mL/min/1.73m^2); Estimated GFR (Non-African Ame >60 (>=60 mL/min/1.73m^2); Glucose 91 mg/dL (74-106); Potassium 4.3 mmol/L (3.5-5.1); Sodium 138 mmol/L (136-145)
== END 2025-01-07 09:15 | disposition home or self-care (01) ==
LOC: LAB 09:17
PROVIDERS: PCP Internal Medicine; Visit Provider Internal Medicine
DX: N18.9 Chronic kidney disease, unspecified (principal)
CPT/HCPCS: 36415; 80048

== ENCOUNTER 2025-05-05 13:24 | Outpatient (OUT) | payer OTHER, SELFPAY ==
--- OUTSIDE RECORDS SUMMARY | 2025-04-21 15:30 | XMS_ITS | Encounter Summary ---
Author Organization [facility] Address [address] [place] [address] Care Team Providers Care Tube Operator Name Role Phone Moreno Ryan DO Primary Care Provider [phone] Matteo Pagan DO Unavailable [phone] Reason for Visit * Reason Comments Mouth Lesions 1 month check mouth lesion Encounter Details Date Type Department Care Team (Late st Contact Info) Description 04/21/2025 3:30 PM EDT Office Visit [facility] [address] [facility] [address] [place] [address] Alana Mccabe MD 112 [facility] 130 [place] [address] Oral ulcer (Primary Dx) Social History Tobacco Use Types Packs/Day Years Used Date Smoking Tobacco: Never Smokeless Tobacco: Never Alcohol Use Standard Drinks/Week Comments Yes 4 (1 standard drink = 0.6 oz pur e alcohol) Sex and Gender Information Value Date Recorded Sex Assigned at Not on file Legal Sex Male 7:16 PM EDT Gender Identity Not on file Sexual Orientation Not on file documented as of this encounter Last Filed Vital Signs Vital Sign Reading Time Taken Comments Blood Pressure 135/93 04/21/2025 3:10 PM EDT Pulse 97 04/21/2025 3:10 PM EDT Temperature - - Respiratory Rate - - Oxygen Saturation - - Inhaled Oxygen Concentration - - Weight 78.5 kg (173 lb) 04/21/2025 3:10 PM EDT Height 167.6 cm (5' 6 ) 04/21/2025 3:10 PM EDT Body Mass Index 27.92 04/21/2025 3:10 PM EDT documented in this encounter Progress Notes * Alana Mccabe MD - 04/21/2025 3:30 PM EDT Subjective Patient ID: Awais Lennon is a 60 y.o. male who presents for Mouth Lesions (1 month check mouth lesion) Review of Systems All other systems reviewed and are negative. Family History Problem Relation Name Age of Onset Tremor Mother Heart attack Father Other (bladder cancer) Father Other (smoker) Father Heart attack Maternal Grandmother Active Ambulatory Problems Diagnosis Date Noted ADD (attention deficit disorder) 03/10/2025 Bilateral tinnitus 03/10/2025 Chronic kidney disease 03/10/2025 Diseases of lips 03/10/2025 Essential tremor 03/10/2025 Generalized anxiety disorder 03/10/2025 Hearing loss 03/10/2025 Obesity 03/10/2025 Oral ulcer 03/10/2025 Resting tremor 03/10/2025 Mixed conductive and sensorineural hearing loss of left ear with restricted hearing of right ear 03/10/2025 Screening PSA (prostate specific antigen) 03/10/2025 Resolved Ambulatory Problems Diagnosis Date Noted No Resolved Ambulatory Problems Past Medical History: Diagnosis Date Anxiety Depression Dysfunction of left rotator cuff Impingement syndrome of right shoulder Tremor Past Surgical History: Procedure Laterality Date COLONOSCOPY FL GUIDED ASPIRATION OR INJECTION LARGE JOINT BILATERAL Bilateral 09/19/2022 FL GUIDED ASPIRATION OR INJECTION LARGE JOINT BILATERAL ORTHOPEDIC SURGERY Bilateral both shoulders and bicepts No Known Allergies Current Outpatient Medications on File Prior to Visit Medication Sig Dispense Refill desvenlafaxine (Pristiq) 100 MG 24 hr tablet Take 100 mg by mouth Daily Do not crush, chew, or split. hydrOXYzine HCl (Atarax) 25 MG tablet TAKE 1/2 (ONE-HALF) TO 1 (ONE) TABLET BY MOUTH TWICE DAILY ASNEEDED primidone (Mysoline) 50 MG tablet Take 1 tablet (50 mg) by mouth at bedtime 30 tablet 1 No current facility-administered medications on file prior to visit. Objective Last Recorded Vitals Vitals: 04/21/25 1510 BP: (!) 135/93 Pulse: 97 ENT Physical Exam Oral Cavity/Oropharynx OC/OP comments: 3mm labial frenum ulceration Assessment/Plan Diagnoses and all orders for this visit: Oral ulcer Ulceration has improved, but has failed to fully resolved. I will proceed with bx under local anesthesia documented in this encounter Plan of Treatment Upcoming Encounters Date Type Department Care Team (Late st Contact Info) Description 05/26/2025 3:40 PM EST Office Visit [facility] [place] [facility] [address] [facility] [address] [place] [address] Alana Mccabe MD 112 [facility] [address] [place] [address] documented as of this encounter Visit Diagnoses Diagnosis Oral ulcer- Primary Other and unspecified diseases of the oral soft tissues documented in this encounter Care Teams Tube Operator Relationship Specialty Start Date End Date Moreno Ryan DO [address] [facility] [place] [phone] PCP - General Internal Medicine 07/31/24 Matteo Pagan DO [address] [place] [address] Referring Physician Neurology 08/27/24 documented as of this encounter
--- OUTSIDE RECORDS SUMMARY | 2025-05-05 13:27 | XMS_ITS | Clinical Summary ---
Author Organization [facility] Address [address] [place] [address] Care Team Providers Care Soil Fertility Specialist Name Role Phone Moreno Ryan DO Primary Care Provider [phone] Matteo Pagan DO Unavailable [phone] Allergies No known active allergies Medications desvenlafaxine (Pristiq) 100 MG 24 hr tablet Take 100 mg by mouth Daily Do not crush, chew, or split. Active primidone (Mysoline) 50 MG tabletIndicatio ns:Essential tremor Take 1 tablet (50 mg) by mouth at bedtime 30 tablet 1 12/18/2024 Active hydrOXYzine HCl (Atarax) 25 MG tablet TAKE 1/2 (ONE-HALF) TO 1 (ONE) TABLET BY MOUTH TWICE DAILY NEEDED 03/17/2025 Active Active Problems Problem Noted Date Diagnosed Date ADD (attention deficit disorder) 03/10/2025 Bilateral tinnitus 03/10/2025 Chronic kidney disease 03/10/2025 Diseases of lips 03/10/2025 Essential tremor 03/10/2025 Generalized anxiety disorder 03/10/2025 Hearing loss 03/10/2025 Obesity 03/10/2025 Oral ulcer 03/10/2025 Resting tremor 03/10/2025 Mixed conductive and sensori neural hearing loss of left ear with restricted hearing of right ear 03/10/2025 Screening PSA (prostate specific antigen) 2024 Overview (03/10/2025): PSA: 0.48 - 2019, 0.61 - 06/2024 Encounters Date Type Department Care Team Description 04/22/2025 Telephone [facility] [place] [facility] [address] [facility] [address] [place] [address] Alana Mccabe MD return call 04/21/2025 3:30 PM EDT Office Visit [facility] [place] [facility] [address] [facility] [address] [place] [address] Alana Mccabe MD Oral ulcer (Primary Dx) 04/21/2025 Bamboo flowsheet [facility] [place] [facility] [address] [facility] [address] [place] [address] Alana Mccabe MD 04/21/2025 Travel 03/24/2025 3:40 PM EDT Office Visit [facility] [place] [facility] [address] [facility] [address] [place] [address] Alana Mccabe MD Oral ulceration (Primary Dx) 03/24/2025 Bamboo flowsheet [facility] [place] [facility] [address] [facility] [address] [place] [address] Alana Mccabe MD 03/24/2025 Travel 03/18/2025 Telephone [facility] [place] [facility] [address] [facility] [address] [place] [address] Macy Talbot MA Mouth Lesions 03/11/2025 3:20 PM EDT Office Visit [facility] [place] [facility] [address] [facility] [address] [place] [address] Alana Mccabe MD Oral ulceration (Primary Dx) 03/11/2025 Telephone [facility] [place] [facility] [address] [facility] [address] [place] [address] Macy Talbot MA 03/11/2025 Bamboo flowsheet [facility] [place] [facility] [address] [facility] [address] [place] [address] Alana Mccabe MD 03/11/2025 Travel from Last 3 Months Family History Medical History Relation Name Comments Heart attack Father bladder cancer Father smoker Father Heart attack Maternal Grandmother Tremor Mother Relation Name Status Comments Father Maternal Grandmother Mother Alive Social History Tobacco Use Types Packs/Day Years Used Date Smoking Tobacco: Never Smokeless Tobacco: Never Alcohol Use Standard Drinks/Week Comments Yes 4 (1 standard drink = 0.6 oz pur e alcohol) Sex and Gender Information Value Date Recorded Sex Assigned at Not on file Legal Sex Male 7:16 PM EDT Gender Identity Not on file Sexual Orientation Not on file Last Filed Vital Signs Vital Sign Reading Time Taken Comments Blood Pressure 135/93 04/21/2025 3:10 PM EDT Pulse 97 04/21/2025 3:10 PM EDT Temperature - - Respiratory Rate - - Oxygen Saturation 98% 09/25/2024 10:12 AM EST Inhaled Oxygen Concentration - - Weight 78.5 kg (173 lb) 04/21/2025 3:10 PM EDT Height 167.6 cm (5' 6 ) 04/21/2025 3:10 PM EDT Body Mass Index 27.92 04/21/2025 3:10 PM EDT Plan of Treatment Upcoming Encounters Date Type Department Care Team (Late st Contact Info) Description 05/26/2025 3:40 PM EST Office Visit [facility] [place] [facility] [address] [facility] [address] [place] [phone] Alana Mccabe MD 112 [facility] [address] [place] [address] Health Maintenance Due Date Last Done Comments CT Colonography 1965 Colonoscopy 1965 Colorectal Cancer Screening 1965 FIT-DNA 1965 FIT 1965 FOBT 1965 Sigmoidoscopy 1965 Influenza Vaccine (#1) 2025 4, 04/25/2024, 05/07/2019, Additional history exists Insurance [employer] Care Teams Soil Fertility Specialist Relationship Specialty Start Date End Date Moreno Ryan DO [address] [place] [address] PCP - General Internal Medicine 07/31/24 Matteo Pagan DO [address] [place] [address] Referring Physician Neurology 08/27/24
--- OUTSIDE RECORDS SUMMARY | 2025-05-05 13:27 | XMS_ITS | Clinical Summary ---
Author Organization [facility] Address [facility] [id number] [address] [place] [address] Care Team Providers Care Animation Camera Operator Name Role Phone No Pcp, No Pcp Primary Care Provider Unavailabl e Allergies No known active allergies Medications No known medications Immunizations Immunization Administration Dates Next Due Tdap 03/21/2019 Social History Tobacco Use Types Packs/Day Years Used Date Smoking Tobacco: Never Alcohol Use Standard Drinks/Week Comments Yes 0 (1 standard drink = 0.6 oz pur e alcohol) 1 beer a night Childcare Answer Date Recorded Childcare Unknown 01/01/2019 Employment Answer Date Recorded Employment Unknown 01/01/2019 Purpose - Life Answer Date Recorded Purpose and direction in life Unknown Sex and Gender Information Value Date Recorded Sex Assigned at Not on file Legal Sex Male 12:02 PM EDT Gender Identity Not on file Sexual Orientation Not on file Last Filed Vital Signs Vital Sign Reading Time Taken Comments Blood Pressure 128/75 03/21/2019 4:02 PM EDT Pulse 96 03/21/2019 4:02 PM EDT Temperature 36.8 C (98.2 F) 03/21/2019 4:02 PM EDT Respiratory Rate 18 03/21/2019 4:02 PM EDT Oxygen Saturation 99% 03/21/2019 4:02 PM EDT Inhaled Oxygen Concentration - - Weight 90.7 kg (200 lb) 03/21/2019 4:02 PM EDT Height 167.6 cm (5' 6 ) 03/21/2019 4:02 PM EDT Body Mass Index 32.28 03/21/2019 4:02 PM EDT Plan of Treatment Health Maintenance Due Date Last Done Comments Depression Screening 1977 Tobacco Screening 1977 Adult BMI Screening 1983 Zoster (Shingles) Vaccine (1 of 2) 2015 Influenza Vaccine 03/23/2025 DTaP,Tdap and Td Vaccines (2 - Td or Tdap) 03/21/2029 03/21/2019 Medical Devices Not on file Insurance [employer] Care Teams Animation Camera Operator Relationship Specialty Start Date End Date No Pcp, [place] [address] PCP - General Family Medicine 03/21/19
--- OUTSIDE RECORDS SUMMARY | 2025-05-05 13:27 | XMS_ITS | Encounter Summary ---
Author Organization [facility] Address [address] [place] [address] Care Team Providers Care White Sugar Syrup Operator Name Role Phone Moreno Ryan DO Primary Care Provider [phone] Matteo Pagan DO Unavailable Reason for Visit * Reason Onset Date Comments return call 04/22/2025 Encounter Details Date Type Department Care Team (Late st Contact Info) Description 04/22/2025 Telephone [facility] [place] [facility] [address] [facility] [address] [place] [address] Alana Mccabe MD 112 [facility] [address] [place] [address] return call Social History Tobacco Use Types Packs/Day Years [...] on file documented as of this encounter Miscellaneous Notes * Telephone Encounter - Renee Hall - 04/22/2025 1:57 PM EDT Jason called and stated he was returning your call. Please call him at [phone] documented in this encounter Plan of Treatment Upcoming Encounters Date Type Department Care Team (Late st Contact Info) Description 05/26/2025 3:40 PM EST Office Visit [facility] [place] [facility] [address] [facility] [address] [place] [address] Alana Mccabe MD 112 [facility] [address] [place] [address] documented as of this encounter Visit Diagnoses Not on filedocumented in this encounter Care Teams White Sugar Syrup Operator Relationship Specialty Start Date End Date Moreno Ryan DO [address] [place] [phone] PCP - General Internal Medicine 07/31/24 Matteo Pagan DO [address] [place], [place] [address] Referring Physician Neurology 08/27/24 documented as of this encounter
--- OUTSIDE RECORDS SUMMARY | 2025-05-05 13:27 | XMS_ITS | Encounter Summary ---
Author Organization [facility] Address [address] [place] [address] Care Team Providers Care Carpet Cleaner Name Role Phone Moreno Ryan DO Primary Care Provider [phone] Matteo Pagan DO Unavailable [phone] Encounter Details Date Type Department Care Team (Late Contact Info) Description 04/21/2025 Bamboo flowsheet [facility] [place] [facility] [address] [facility] [address] [place] [address] Alana Mccabe MD [address] [facility] [address] [place] [address] Social History Tobacco Use Types Packs/Day Years [...] on file documented as of this encounter Plan of Treatment Upcoming Encounters Date Type Department Care Team (Late st Contact Info) Description 05/26/2025 3:40 PM EST Office Visit [facility] [place] [facility] [address] [facility] [address] [place] [address] Alana Mccabe MD [address] [facility] [address] [place] [address] documented as of this encounter Visit Diagnoses Not on filedocumented in this encounter Care Teams Carpet Cleaner Relationship Specialty Start Date End Date Moreno Ryan DO [address] [place] [address] PCP - General Internal Medicine 07/31/24 Matteo Pagan DO [address] [place] [address] Referring Physician Neurology 08/27/24 documented as of this encounter
--- OUTSIDE RECORDS SUMMARY | 2025-05-05 13:27 | XMS_ITS | Encounter Summary ---
Author Organization [facility] Address [address] [place] [address] Care Team Providers Care Clinical Data Assistant Name Role Phone Moreno Ryan DO Primary Care Provider [phone] Matteo Pagan DO Unavailable [phone] Encounter Details Date Type Department Care Team (Latest Contact Info) Description 04/21/2025 Travel Social History Tobacco Use Types Packs/Day Years [...] EST Office Visit [facility] [place] [facility] 112 [facility] [address] [place] [address] Alana Mccabe MD 112 [facility] [address] [place] [address] documented as of this encounter Visit Diagnoses Not on filedocumented in this encounter Care Teams Clinical Data Assistant Relationship Specialty Start Date End Date Moreno Ryan DO [address] [place] [address] PCP - General Internal Medicine 07/31/24 Matteo Pagan DO [address] [place] [address] Referring Physician Neurology 08/27/24 documented as of this encounter
--- OUTSIDE RECORDS SUMMARY | 2025-05-05 13:28 | XMS_ITS | CCD ---
Author Organization [facility] Care Team Providers Care Road Conductor Name Role Phone Moreno Ryan DO Primary Care Provider BETZY IYER Attending Unavailable MORENO RYAN Primary Care Unavailable SELF, SELF Referring Unavailable Moreno Ryan Unavailable CONNOR, DR WISE Admitting Unavailable BALL, DR WISE Attending Unavailable BALL, DR WISE Primary Care Unavailable BALL, DR WISE Admitting Unavailable BALL, DR WISE Attending Unavailable BALL, DR WISE Primary Care Unavailable BALL, DR WISE Consulting Unavailable TIMMIS, DR CARY Admitting Unavailable TIMMIS, DR CARY Attending Unavailable BALL, DR WISE Primary Care Unavailable TIMMIS, DR CARY Consulting Unavailable JESUS ALBERTO BHAKTA Consulting Moreno Frye MD Primary Care Provider Jesus Alberto Pagan DO Unavailable [phone] Moreno Ryan DO Primary Care Provider Moreno Ryan DO Attending Provider [phone] Moreno Ryan DO Primary Care Provider Jesus Alberto Pagan DO Unavailable [phone] JESUS ALBERTO PAGAN Attending Unavailable MORENO RYAN Referring Unavailable ANA GR Attending Unavailable ALANA DAVILA Attending Unavailable ALANA DAVILA Attending Unavailable ALANA DAVILA Attending Unavailable Allergies Allergy Classification Reported Allergen(s) Allergy Type Date of Onset Reaction(s) Facility (3 sources) false ragweed pollen extract / western ragweed pollen extract Drug Allergy 3 [facility] (2 sources) patient allergy list reviewed by nurse or physicia Propensity to adverse reactions 4 Comment:Done [facility] Other Medications Current Medications Medication Drug Class(es) [...] succinate 100 mg extended release oral tablet (16 sources) Serotonin and Norepinephrine Reuptake Inhibitor Start: 07-21-2024 take 1 tablet by mouth every twenty-four hours Desvenlafaxine Succinate 100 mg tablet extended release 24 hr Active MG PO July 21, 2024 1:00am Complies with drug therapy take 1 tablet by mouth once kodi y desvenlafaxine (Pristiq) 100 MG 24 hr tablet Take 100 mg by mouth Daily Do not crush, chew, or split. Active hydrOXYzine hydrochloride 25 mg oral tablet (6 sources) Antihistamine Start: 03-17-2025 take 0.5-1 tablets by mouth twice daily as needed hydrOXYzine HCl (Atarax) 25 MG tablet TAKE 1/2 (ONE-HALF) TO 1 (ONE) TABLET BY MOUTH TWICE DAILY NEEDED 03/17/2025 Active primidone 50 mg oral tablet (18 sources) Anti-epileptic Agent Start: 12-18-2024 take 1 tablet by mouth at bedtime primidone (Mysoline) 50 MG tablet Indications: Essential tremor Take 1 tablet (50 mg) by mouth at bedtime 30 tablet 1 12/18/2024 Active Start: 09-25-2024 End: 11-24-2024 take 1 tablet by mouth at bedtime [...] Drug Class(es) Dates Sig (Normalized) Sig (Original) 24 hr amphetamine aspartate 2.5 mg / amphetamine sulfate 2.5 mg / dextroamphetamine saccharate 2.5 mg / dextroamphetamine sulfate 2.5 mg extended release oral capsule (2 sources) Central Nervous System Stimulant Start: 07-21-2024 End: 01-05-2025 take 1 capsule by mouth every twenty-four hours Dextroamphetamine -Amphetamine 10 mg capsule,extended release 24hr Discontinued 10 MG PO Once July 21, 2024 1:00am January 05, 2025 2:00pm 1 ml dexamethasone phosphate 4 mg/ml injection [...] Problem Date Documented Date Episodic/Chronic Anxiety disorders (20 sources) Generalized anxiety disorder; Translations: [Generalized anxiety disorder] Onset: 08-14-2023 Chronic Chronic kidney disease (13 sources) Chronic kidney disease; Translations: [Chronic kidney disease, unspecified] Onset: 03-10-2025 01-02-2025 Chronic Diseases of mouth; excluding dental (20 sources) Ulcer of mouth; Translations: [Enlarged labial frenum] Onset: 03-10-2025 Episodic Disorders usually diagnosed in infancy, childhood, or adolescence (11 sources) Attention deficit hyperactivity disorder, predominantly inattentive type; Translations: [Other specified behavioral and emotional disorders with onset usually occurring in childhood and adolescence] Onset: 03-10-2025 07-21-2024 Chronic Headache; including migraine (8 sources) Migraine [...] Chronic Other ear and sense organ disorders (15 sources) Hearing loss; Translations: [Unspecified hearing loss, bilateral] Onset: 03-10-2025 03-10-2025 Chronic Other ear and sense organ disorders (4 sources) Sensorineural hearing loss, bilateral; Translations: [SENSORINEURAL HEAR LOSS BILATERAL] Onset: 07-26-2022 Chronic Other ear and sense organ disorders (9 sources) Mixed conductive AND sensorineural hearing loss; Translations: [Mixed conductive and sensorineural hearing loss, unilateral, left ear with restricted hearing on the contralateral side] Onset: 03-10-2025 03-10-2025 Chronic Other ear and sense organ disorders (9 sources) Bilateral tinnitus; Translations: [Tinnitus, bilateral] Onset: 03-10-2025 03-10-2025 Episodic Other hereditary and degenerative nervous system conditions (17 sources) Essential tremor; Translations: [Essential tremor] Onset: 03-10-2025 08-27-2024 Chronic Other hereditary and degenerative nervous system conditions (11 sources) Resting tremor; Translations: [Other specified forms of tremor] Onset: 03-10-2025 07-21-2024 Chronic Other non-traumatic joint disorders (2 sources) Shoulder joint pain; Translations: [Pain in right shoulder] Episodic Other nutritional; endocrine; and metabolic disorders (17 sources) Obesity; Translations: [Obesity, unspecified] Onset: 03-10-2025 07-21-2024 Chronic Other nutritional; endocrine; and metabolic disorders [...] conditions (not mental disorders or infectious disease) (20 sources) Decreased testosterone level ; Translations: [Other specified abnormal findings of blood chemistry] Onset: 11-16-2021 Episodic Comment on above: PSA: 0.48 - 2018, 0. 61 - 06/2024 Other upper respiratory disease (2 sources) Seasonal allergic rhinitis; Translations: [Other seasonal allergic rhinitis] Onset: 09-22-2015 Chronic Sprains and strains (1 source) Strain of unspecified muscle, fascia and tendon at shoulder and upper arm level, left arm, initial encounter Episodic Unclassified (1 source) K12.1 - Other forms of stomatitis,K13.0 - Diseases of lips Past or Other Problems Problem Classification Problem [...] Results Test Name Value Interpretation Reference Range Facility Estimated glomerular filtrat ion rate (GFR) non- AmericanOrdered By: Moreno Ryan on 01-07-2025 GFR/1.73 sq M.predicted among non-blacks MDRD (S/P/Bld) [Vol rate/Area] mL/min/{1.73_m2} >=60 mL/min/1.73m 2 [facility] - Chemistry and C hemistry - challengeOrdered By: Moreno Ryan on 01-07-2025 Calcium [Mass/Vol] 9.1 mg/dL 8.5-10.1 [facility] Chloride [Moles/Vol] 101 mmol/L 98-107 [facility] CO2 [Moles/Vol] 26.9 mmol/L 21.0-32.0 [facility] Creatinine [Mass/Vol] 1.17 mg/dL 0.70-1.30 [facility] GFR/1.73 sq M.predicted MDRD (S/P/Bld) [Vol rate/Area] mL/min/{1.73_m2} >=60 mL/min/1.73m 2 [facility] Glucose [Mass/Vol] 91 mg/dL 74-106 [facility] Potassium [Moles/Vol] 4.3 mmol/L 3.5-5.1 [facility] Sodium [Moles/Vol] 138 mmol/L 136-145 [facility] Urea nitrogen [Mass/Vol] 24.0 mg/dL High 7.0-18.0 [facility] Urea nitrogen/Creatinine [Mass ratio] 20.5 mg/mg [facility] Serum or plasma anion gap de terminationOrdered By: Moreno Ryan on 01-07-2025 Anion gap [Moles/Vol] 14.4 mmol/L [facility] XR Shoulder - left 2 Viewson 11-28-2022 IMPRESSION: Sequela of chronic rotator cuff pathology. Status post prior distal clavicular resection and labral repair. OLOGY EXAM: XR SHOULDER LEFT 3 VIEWS, 11/28/2022 [...] prior distal clavicular resection and labral repair. [facility] Radiology Study observation (narrative) [facility] XR Shoulder - left 2 ViewsOr dered By: Shade Kaur on 11-28-2022 [facility] Work Phone: LARGE JOINT/BURSA INJECTION AND/OR [...] fashion. The patient was prepped with Chloraprep. [facility] Radiology Study observation (narrative) [facility] MRI BRAIN WO W CONon 023 [...] or midline shift. No intracranial hemorrhage on susceptibility-weigh noel images. There is no restricted diffusion. Ventricles [...] ALBERTO BHAKTA Date: 2022-07-26 13:50 Normal [facility] TESTOSTERONE, TOTALon 2021 Testosterone [Mass/Vol] 529 ng/dL Normal [id number] [facility] Comment on above: Result Comment: Adul t male reference interval is based on a population of healthy nonobese males (BMI <30) between 19 and 39 years old. ester Upton. JCEM 2017,102;7097-2792. PMID: [id number]. Performed By: #### T ESTTOT #### [facility] [address] [place] [address] Dr. Hector Monroe Vital Signs Date Time Vital Sign Value Performing Clinician Rylan fernández 04-21-2025 15:10-0400 Body height 167.6 cm Alana Davila MD Work Phone: [facility] 04-21-2025 15:10-0400 Body mass index (BMI) [Ratio] 27.92 kg/m2 Alana Davila MD Work Phone: [facility] 04-21-2025 15:10-0400 Body weight 78.47 kg Alana Davila MD Work Phone: [facility] 04-21-2025 15:10-0400 Diastolic blood pressure 93 mm[Hg] Alana Davila MD Work Phone: [facility] 04-21-2025 15:10-0400 Heart rate 97 /min Alana Davila MD Work Phone: [facility] 04-21-2025 15:10-0400 Systolic blood pressure 135 mm[Hg] Alana Davila MD Work Phone: [facility] 03-24-2025 15:29-0400 Body height 167.6 cm Alana Davila MD Work Phone: [facility] 03-24-2025 15:29-0400 Body mass index (BMI) [Ratio] 27.92 kg/m2 Alana Davila MD Work Phone: [facility] 03-24-2025 15:29-0400 Body weight 78.47 kg Alana Davila MD Work Phone: [facility] 03-24-2025 15:29-0400 Diastolic blood pressure 91 mm[Hg] Alana Davila MD Work Phone: [facility] 03-24-2025 15:29-0400 Heart rate 100 /min Alana Davila MD Work Phone: [facility] 03-24-2025 15:29-0400 Systolic blood pressure 139 mm[Hg] Alana Davila MD Work Phone: [facility] 03-11-2025 15:26-0400 Body height 167.6 cm Alana Davila MD Work Phone: [facility] 03-11-2025 15:26-0400 Body mass index (BMI) [Ratio] 27.92 kg/m2 Alana Davila MD Work Phone: [facility] 03-11-2025 15:26-0400 Body weight 78.47 kg Alana Davila MD Work Phone: [facility] 03-11-2025 15:26-0400 Diastolic blood pressure 93 mm[Hg] Alana Davila MD Work Phone: [facility] 03-11-2025 15:26-0400 Heart rate 90 /min Alana Davila MD Work Phone: [facility] 03-11-2025 15:26-0400 Systolic blood pressure 142 mm[Hg] Alana Davila MD Work Phone: [facility] 02-27-2025 13:10-0400 Body height 167.64 cm Moreno Ball DO Work Phone: [facility] 02-27-2025 13:10-0400 Body mass index (BMI) [Ratio] 28 kg/m2 Moreno Ball DO Work Phone: [facility] 02-27-2025 13:10-0400 Body weight 78.64 kg Moreno Ball DO Work Phone: [facility] 02-27-2025 13:10-0400 Diastolic blood pressure 90 mm[Hg] Moreno Ball DO Work Phone: [facility] 02-27-2025 13:10-0400 Heart rate 120 /min Moreno Ball DO Work Phone: [facility] 02-27-2025 13:10-0400 Respiratory rate 12 /min Moreno Ball DO Work Phone: [facility] 02-27-2025 13:10-0400 Systolic blood pressure 124 mm[Hg] Moreno Ball DO Work Phone: [facility] 01-05-2025 13:54-0400 Body height 167.64 cm Moreno Ball DO Work Phone: [facility] 01-05-2025 13:54-0400 Body mass index (BMI) [Ratio] 28.8 kg/m2 Moreno Ball DO Work Phone: [facility] 01-05-2025 13:54-0400 Body weight 80.9 kg Moreno Ball DO Work Phone: [facility] 01-05-2025 13:54-0400 Diastolic blood pressure 88 mm[Hg] Moreno Ball DO Work Phone: [facility] 01-05-2025 13:54-0400 Heart rate 88 /min Moreno Ball DO Work Phone: [facility] 01-05-2025 13:54-0400 Respiratory rate 12 /min Moreno Ball DO Work Phone: [facility] 01-05-2025 13:54-0400 Systolic blood pressure 131 mm[Hg] Moreno Ball DO Work Phone: [facility] 09-25-2024 10:12-0500 Body mass index (BMI) [Ratio] 30.34 kg/m2 Ana Gr MANAGEMENT PSYCHOLOGIST Work Phone: [facility] 09-25-2024 10:12-0500 Body weight 85.28 kg Ana Gr MANAGEMENT PSYCHOLOGIST Work Phone: [facility] 09-25-2024 10:12-0500 Diastolic blood pressure 90 mm[Hg] Ana Gr MANAGEMENT PSYCHOLOGIST Work Phone: [facility] 09-25-2024 10:12-0500 Heart rate 112 /min Ana Gr MANAGEMENT PSYCHOLOGIST Work Phone: [facility] 09-25-2024 10:12-0500 SaO2% (BldA) [Mass fraction] 98 % Ana Gr MANAGEMENT PSYCHOLOGIST Work Phone: [facility] 09-25-2024 10:12-0500 Systolic blood pressure 142 mm[Hg] Ana Gr MANAGEMENT PSYCHOLOGIST Work Phone: [facility] 08-27-2024 08:24-0500 Body mass index (BMI) [Ratio] 30.57 kg/m2 Christopher Latasha DO Work Phone: [facility] 08-27-2024 08:24-0500 Body weight 85.91 kg Christopher Latasha DO Work Phone: [facility] 08-27-2024 08:24-0500 Diastolic blood pressure 88 mm[Hg] Christopher Latasha DO Work Phone: [facility] 08-27-2024 08:24-0500 Heart rate 74 /min Christopher Latasha DO Work Phone: [facility] 08-27-2024 08:24-0500 SaO2% (BldA) [Mass fraction] 98 % Christopher Latasha DO Work Phone: [facility] 08-27-2024 08:24-0500 Systolic blood pressure 138 mm[Hg] Christopher Latasha DO Work Phone: [facility] 08-15-2022 10:30-0500 Body height 167.64 cm Moreno Ball Other [facility] Other 08-15-2022 10:30-0500 Body mass index (BMI) [Ratio] 26.14 kg/m2 Moreno Ball Other [facility] Other 08-15-2022 10:30-0500 Body weight 73.48 kg Moreno Ball Other [facility] Other 08-15-2022 10:30-0500 Diastolic blood pressure 84 mm[Hg] Moreno Ball Other [facility] Other 08-15-2022 10:30-0500 Respiratory rate 12 /min Moreno Ryan Other [facility] Other 08-15-2022 10:30-0500 Systolic blood pressure 122 mm[Hg] Moreno Ryan Other [facility] Other Encounters Encounter Date Encounter Type Care Provider Facility Start: 04-21-2025 End: 04-21-2025 Office outpatient visit 25 minutes Alana Davila MD Work Phone: [facility] Comment on above: Oral ulcer (Primary Dx) Start: 04-21-2025 End: 04-21-2025 ambulatory ALANA H TIMMIS Not Available Start: 04-21-2025 End: 04-21-2025 Bamfernando Davila MD Work Phone: [facility] Start: 04-21-2025 End: 04-21-2025 Bamboo qing Davila MD Work Phone: [facility] Start: 03-24-2025 End: 03-24-2025 Office outpatient visit 15 minutes Alana Davila MD Work Phone: [facility] Comment on above: Oral ulceration (Katya yenni Dx) Start: 03-24-2025 End: 03-24-2025 ambulatory ALANA H TIMMIS Not Available Start: 03-24-2025 End: 03-24-2025 Bamboo flowsleola Davila MD Work Phone: [facility] Start: 03-24-2025 End: 03-24-2025 Bamlilyo qing Davila MD Work Phone: [facility] Start: 03-11-2025 End: 03-11-2025 ambulatory ALANA DAVILA Not Available Start: 03-11-2025 End: 03-11-2025 Office outpatient visit 25 minutes Alana Davila MD Work Phone: [facility] Comment on above: Oral ulceration (Katya yenni Dx) Start: 03-11-2025 End: 03-11-2025 Bamboo flowsheet Alana Davila MD Work Phone: [facility] Start: 03-11-2025 End: 03-11-2025 Bamboo flowsleola Davila MD Work Phone: [facility] Start: 02-27-2025 End: 02-27-2025 ambulatory Moreno Ryan Work Phone: [facility] Work Phone: Start: 02-27-2025 End: 02-27-2025 Patient encounter procedure Moreno Ryan DO -[facility] Work Phone: Start: 01-07-2025 Non-patient / Non-visit Moreno Ryan DO -[facility] Work Phone: Start: 01-05-2025 End: 01-05-2025 Patient encounter procedure Moreno Ryan DO -[facility] Work Phone: Start: 09-25-2024 End: 09-25-2024 Bamboo flowsheet Aan Gr MANAGEMENT PSYCHOLOGIST Work Phone: [facility] Start: 09-25-2024 End: 09-25-2024 Bamboo flowsheet Ana Gr MANAGEMENT PSYCHOLOGIST Work Phone: [facility] Start: 09-25-2024 End: 09-25-2024 Office outpatient visit 25 minutes Ana Gr MANAGEMENT PSYCHOLOGIST Work Phone: [facility] Comment on above: Essential tremor Start: 09-25-2024 End: 09-25-2024 ambulatory ANA GR Not Available Start: 08-27-2024 End: 08-27-2024 Bamboo flowsheet Jesus Alberto Pagan DO Work Phone: [facility] Start: 08-27-2024 End: 08-27-2024 Bamboo flowsheet Jesus Alberto Pagan DO Work Phone: [facility] Start: 08-27-2024 End: 08-27-2024 Office outpatient new 45 minutes Jesus Alberto Pagan DO Work Phone: [facility] Comment on above: Essential tremor (Pr imary Dx) Start: 08-27-2024 End: 08-27-2024 ambulatory JESUS ALBERTO PAGAN Not Available Start: 07-17-2024 Patient encounter status Moreno Connor DO Work Phone: [facility] Start: 08-14-2023 End: 06-03-2024 ambulatory Felicita Start: 06-01-2023 End: 06-01-2023 ambulatory Moreno Ryan Other [facility] Other Start: 06-01-2023 Telephone encounter Moreno Ryan [facility] Start: 04-12-2023 End: 04-12-2023 ambulatory Moreno Connor Other [facility] Other Start: 04-12-2023 Patient encounter procedure Moreno Ryan [facility] Start: 04-12-2023 Telephone encounter Moreno ROSALES [facility] Start: 11-28-2022 End: 11-28-2022 Subsequent hospital visit by physician Betzy Iyer MD Work Phone: [facility] Comment on above: Arrived Start: 11-28-2022 End: 11-28-2022 Office outpatient visit 15 minutes Betzy Iyer MD Work Phone: [facility] Comment on above: Dysfunction of left rotator cuff (Primary Dx) Start: 11-01-[address] MORENO RYAN Facili ty:[facility] Start: 09-19-2022 ambulatory BETZY IYER Facility :[facility] Start: 09-19-2022 End: 09-19-2022 Office outpatient new 30 minutes Betzy Iyer MD Work Phone: [facility] Comment on above: Dysfunction of left rotator cuff (Primary Dx) Start: 09-04-2022 End: 09-04-2022 ambulatory Moreno Ryan Other [facility] Other Start: 09-04-2022 [facility] Start: 09-04-2022 Telephone encounter Moreno Ryan [facility] Start: 08-15-2022 End: 08-15-2022 ambulatory Moreno Ryan Other [facility] Other Start: 08-15-2022 Patient encounter procedure [facility] Start: 08-15-2022 Periodic preventive med est patient 40-64yrs [facility] Start: 08-04-2022 Patient encounter status Moreno Ryan Other [facility] Other Start: 07-26-2022 End: 07-27-[address] ALANA DAVILA Facility:[facility] Start: 11-16-2021 End: 11-17-[address] MORENO RYAN Facility:[facility] Start: 08-09-2021 Adult health examination Moreno Ryan Other [facility] Other Procedures Date Procedure Procedure Detail Performing Clinician Start: 11-28-2022 Radex shoulder compl ete minimum 2 views Betzy Iyer MD Work Phone: Start: 09-19-2022 Arthrocentesis aspir &/inj major jt/bursa w/o Betzy Iyer MD Work Phone: Start: 01-31-2017 General examination of patient Moreno Ryan Other Depression screening Jesus Alberto Ryan Other Screening for malign ant neoplasm of colon Moreno Ryan Other Plan of Treatment Date Care Activity Detail Author Start: 03-21-2029 Tetanus vaccination TETANUS [facility] Start: 04-22-2025 End: 04-22-2025 Patient encounter procedure 04/22/2025 3:30 PM EDT Office Visit [facility] [place] [facility] [address] [place] [address] Alana Davila MD [address] [place] [address] [facility] [place] [facility] Start: 04-21-2025 End: 04-21-2025 Patient encounter procedure 04/21/2025 3:30 PM EDT Office Visit [facility] [place] [facility] [address] [place] [address] Alana Davila MD [address] [place] [address] Arrived [facility] [place] [facility] Comment on above: Arrived Start: 03-25-2025 End: 03-25-2025 Patient encounter procedure 03/25/2025 2:30 PM EDT Office Visit [facility] [place] [facility] [address] [place] [address] Alana Davila MD [address] [place] [address] [facility] [place] [facility] Start: 03-24-2025 End: 03-24-2025 Patient encounter procedure 03/24/2025 3:40 PM EDT Office Visit [facility] [place] [facility] [address] [place] [address] Alana Davila MD [address] [place] [address] Arrived [facility] [place] [facility] Comment on above: Arrived Start: 03-23-2025 Influenza vaccination Influenza Vacc ine (#1) [facility] Start: 02-27-2025 Patient referral [facility] Work Phone: Start: 12-16-2024 End: 12-16-2024 Patient encounter procedure 12/16/2024 10:40 AM EDT Office Visit [facility] [address] [place] [phone] Ana Gr NP [address] [place] [phone] [facility] Start: 09-25-2024 End: 09-25-2024 Patient encounter procedure [facility] Comment on above: Arrived Start: 08-27-2024 End: 08-27-2024 Patient encounter procedure 08/27/2024 8:30 AM EST Office Visit [facility] [address] [place] [phone] Jesus Alberto Pagan DO [address] [place] [address] [id number] Arrived [facility] Comment on above: Arrived Start: 03-23-2023 Influenza vaccination INFLUENZ A VACCINE (Season Ended) [facility] Start: 12-14-2022 End: 12-14-2022 Patient encounter procedure 12/14/2022 Appointment Magnetic Resonance Imaging Betzy Iyer MD [address] [place] [address] [facility] Start: 11-28-2022 End: 11-29-2023 MR Shoulder - left WO contrast MRI SHOULDER LEFT WITHOUT CONTRAST Imaging Routine Dysfunction of left rotator cuff Expected: 11/28/2022, Expires: 11/29/2023 [facility] Comment on above: Expected: 11/28/2022 , Expires: 11/29/2023 Start: 03-23-2022 Influenza vaccination INFLUENZA VACC INE (#1) [facility] Start: 2015 Prostate specific antigen measurement PROSTATE CANCER SCREENING DISCUSSION [facility] Start: 2015 Zoster vaccine hzv live for subcutaneous use ZOSTER (SHINGLES) VACCINE (1 of 2) [facility] Start: 2010 Screening for malignant neoplasm of colon COLORECTAL CANCER SCREENING DISCUSSION [facility] Start: 2005 Lipid panel LIPID SCREENING [facility] Start: 1980 HIV screening HIV SCREENING DISCUSSION [facility] Start: 1965 COVID-19 VACCINE (#1) COVID-19 VACCI NE (#1) [facility] Start: 1965 Hepatitis C screening HEPATITI S C VIRUS SCREENING [facility] Start: 1965 Screening for malignant neoplasm of colon [facility] Healthcare Patient referral [facility] Work Phone: Immunizations Immunization Date Immunization Notes Care Provider Fa cili 05-12-2024 influenza virus vacc ine, unspecified formulation Alana Davila MD Work Phone: [facility] Healthcare Payers Date Payer Category Payer Private Health Insurance [employer] [id number] 2018 Unknown [employer] [place] [id number] 2018-Present [address] [place] [address] [id number] 1965 Unknown [id number] [id number]. 594 1965 Unknown [id number] [id number]. 593 1965 Unknown [id number] [id number]. 593 1965 Unknown [id number] [id number]. 593 1965 Unknown [id number] [id number]. 1259 1965 Unknown [id number] [id number]. 1259 1965 Unknown [id number] [id number]. 1259 1965 Unknown [id number] [id number]. 9 1965 Unknown [id number] [id number]. 1259 1959 Self-pay [id number] 1959 Unknown [id number] Social History Date Type Detail Facility Tobacco smoking status LAIS Tobacco smoking consumption unknown [facility] Start: 1965 Sex Assigned At Not on file [facility] Start: 09-09-2022 End: 09-19-2022 Exposure to SARS-CoV-2 (event) Unable to assess [facility] Start: 09-25-2024 End: 04-21-2025 Sex Assigned At [facility] Other Start: 09-25-2024 Tobacco smoking status NHIS Ex-smoker [facility] History of tobacco use Current smoker [facility] History of tobacco use Cigarette Smoker [facility] Start: 09-25-2024 Tobacco use and exposure Former smokeless tobacco user [facility] Start: 09-25-2024 End: 04-21-2025 Alcoholic beverage intake Current drinker of alcohol (finding) [facility] Start: 09-25-2024 End: 04-21-2025 History of Social function [facility] Start: 07-21-2024 End: 03-11-2025 Tobacco smoking status NHIS Never smoked tobacco (finding) [facility] Sex Male (finding) [facility] Start: 1965 Sex Assigned At Male F [facility] Start: 03-11-2025 Tobacco use and exposure Smokeless tobacco non-user [facility] Clinical Notes 08-15-2022 to 03-24-2025 Alana Davila MD - 03/24/2025 3:40 PM EDTHihaider Davila MD - 03/11/2025 3:20 PM EDT Note Date & Type Note Facility 03-24-2025 History of Presen t illness Narrative Subjective Patient ID: Abiola Gomes is a 59 y.o. male who presents for Oral ulceration (Mouth lesion getting bigger) Family History Problem Relation Name Age of [...] Daily Do not crush, chew, or split. primidone (Mysoline) 50 MG tablet Take 1 tablet (50 mg) by mouth at bedtime 30 tablet 1 No current facility-administered medications on file prior to visit. Objective Last Recorded Vitals Vitals: 03/24/25 1529 BP: (!) 139/91 Pulse: 100 ENT Physical Exam Oral Cavity/Oropharynx OC/OP comments: 4mm ulceration lower labial frenum Assessment/Plan Diagnoses and all orders for this visit: Oral ulceration Excellent response to tx after 13 days. Miles solution refilled. Recheck one month documented in this encounter [facility] 03-11-2025 History of Presen t illness Narrative Subjective Patient ID: Abiola Gomes is a 59 y.o. male who presents for Mouth Lesions Pt has had a painful ulcer of the lower labial frenum 3-4 weeks ago. No tx. Initially there was marked swelling that has improved. Family History Problem Relation Name Age of [...] Daily Do not crush, chew, or split. primidone (Mysoline) 50 MG tablet Take 1 tablet (50 mg) by mouth at bedtime 30 tablet 1 No current facility-administered medications on file prior to visit. Objective Last Recorded Vitals Vitals: 03/11/25 1526 BP: (!) 142/93 Pulse: 90 ENT Physical Exam Oral Cavity/Oropharynx OC/OP comments: Shallow ulceration and skin tag on the lower labial frenum Assessment/Plan Diagnoses and all orders for this visit: Oral ulceration Fairly recent onset of painful oral ulcer. Tx with Miles solution 2 weeks. Bx if not improving documented in this encounter [facility] 01-05-2025 Evaluation note Diagnosis Onset Date Resolution Chronic kidney disease acute 2024 1:46pm Essential tremor acute December 1:46pm YAEL (generalized anxiety disorder) acute January 05 1:46pm [facility] Work Phone: 1(933) 767-957006-16-2025 Evaluation note* Diagnosis Onset Date Resolution Status Admit Date Chronic kidney disease acute 2024 1:46pm Essential tremor acute December 1:46pm YAEL (generalized anxiety disorder) acute January 05, 2025 1:46pm Enlargement oral labial frenulum acu te February 27, 2025 1:00pm Oral ulcer acute February 27 1:00pm [facility] Work Phone: 1(377) 928-618903-06-2025 Instructions* Patient Instructions* Ana Gr NP - 09/25/2024 10:20 AM EST Increase primidone to 50 mg by mouth once daily at bedtime documented in this encounterChildren[id number] History of Present illness Narrative* Jesus Alberto Pagan DO - 08/27/2024 8:30 AM EST Images from the original note were not included. Chief complaint: Tremor Subjective Abiola Gomes, 59 y.o., male Patient presents today [...] , wrist extensors , wrist flexor , director revenue strength 5/5. LUE Strength deltoid , biceps , triceps , wrist extensors , wrist flexor , director revenue strength 5/5. RLE Strength illopsoas, quadriceps, tibialis [...] reflex 2+ . Colby's sign negative. Coordination: Atxouz-us-xsxm testing and rapid alternating movements are normal [...] tremor which affects the right greater than leftupper extremity and also seems to affect the [...] effects discussed in detail. Patient understands and wishesto proceed. We did talk about the fact [...] plan, and return instructions documented in [id number] Evaluation note* Encounter Date Diagnosis Assessment Notes Treatment Notes Treatment Clinical Notes Mar, Annual physical exam (ICD-10 - Z00.00) Eventstagr.am Other 05-09-2023 History of Present illness Narrative* [...] glenohumeral osteoarthritis, will follow up with MRI. [facility] with results. Orders Placed This Encounter XR SHOULDER LEFT MIN 2 VIEWS MRI SHOULDER LEFT WITHOUT CONTRAST Betzy Iyer MD [facility] History of Present illness Narrative* David [...] was prepped with Chloraprep. documented in [facility]-2023 Instructions* Patient Instructions* Betzy Iyer MD [...] warmth -Excessive swelling -Drainage [facility] * Encounter Date Diagnosis Assessment Notes Treatment Notes Treatment Clinical Notes Aug, Annual physical exam (ICD-10 - Z00.00) Eventstagr.am Other 01-24-2023 Evaluation note* Encounter Date Diagnosis [...] PSA (prostate specific antigen) (ICD-10 - Z12.5) [facility] [employer] [facility]) Other Evaluation note* Diagnosis Dysfunction of left rotator cuff- Primary [facility] Diagnosis Dysfunction of left rotator cuff- Primary Dysfunction of left rotator cuff [facility] Diagnosis Dysfunction of left rotator cuff documented in this encounter [facility] Clean RunnerKettering [facility]burgEvaluation noteNo InformationNortHahnemann University Hospital [employer] ([facility]) Other Evaluation note* Diagnosis Essential tremor- Primary [facility] Diagnosis Essential tremor [facility]* Diagnosis Oral ulceration- Primary Other and unspecified diseases of the oral soft tissues [facility]* Diagnosis Oral ulceration- Primary Other and unspecified diseases of the oral soft tissues [facility] Diagnosis Oral ulcer- Primary Other and unspecified diseases of the oral soft tissues documented in this encounter [facility] HealthcareHistory general [...] tendon repair Hospitalization History see surgical history [facility] [employer] [facility]) Other History of Present illness Narrative* Alana Davila MD - 04/21/2025 3:30 PM EDT Subjective Patient ID: Abiola Gomes is a 60 y.o. male who presents [...] bx under local anesthesia documented in [facility] encounterNOPark[facility] CenterH[facility] Discharge instructions Ambulatory Orders* Referral to ENT Time Frame: 02/27/25, Location: None [facility] Work Phone: Reason for referral (narrative)* Consultation (Routine) - Patient to Arrange Specialty Diagnoses / Procedures Referred By Jagjit marroquin Referred To Contact Sports Ortho and Primary Care Sports Diagnoses Dysfunction of left rotator cuff Betzy Iyer MD [address] [facility] [address] [place] [address] Referral ID Status Reason Start Date Expiration Date V isits Requested Visits Authorized [id number] Patient to Arrange 09/19/2022 10/14/2023 1 1 Scheduling Instructions [facility] [address] [facility], 2nd [place] [address] Fax [facility]) [address] [place] [address] FAX [facility] [address] [address] FAX Outpatient Rehabilitation Outpatient [facility] [place] [address] [facility] [address] [place] [address] FAX [facility] [address] [place] [address] FAX [facility] at [facility] [address] [place], [place] [address] FAX [facility] [address] [place], [place] [address] FAX Continued on next page Outpatient Rehabilitation Outpatient Care [address] [place] [address] FAX [facility] [address] [facility], [address] [place] [address] FAX [facility]Reason for referral (narrative)No reason for referral information availableWayne Healthcare [facility] Work Phone: Reason for visit Narrative* Consultation (Routine) - Closed Specialty Diagnoses / Procedures Referred By Jagjit marroquin Referred To Contact Neurology Diagnoses Essential tremor Procedures IA OFFICE/OUTPATIENT NEW LOW [facility] 30 MINUTES Moreno Ryan MD [address] [place] [address] Phone: tel: fax: Jesus Alberto Pagan, [address] [place] [address] Phone: tel: fax: Referral ID Status Reason Start Date Expiration Date V isits Requested Visits Authorized [id number] Closed Consult and Treat 07/28/2024 01/24/2025 1 1 [facility] Summary Purpose Family History No Family History Records Found Relationship Condition Age at Onset Recorded Date/T abram father Heart disease Unknown Malignant neoplasm Unknown Advance Directives No Advanced Directives Records Found Advance Directive Response Recorded Date/ Time Advance Directives No June 23, 2024 4:14pm Reason for Referral Specialty Diagnoses / Procedures Referred By Jagjit marroquin Referred To Contact Diagnoses Dysfunction of left rotator cuff Procedures MRI SHOULDER LEFT WITHOUT CONTRAST IA MRI, JOINT UPPER EXTREM Betzy Iyer MD [facility] [address] [place] [address] Referral ID Status Reason Start Date Expiration Date V isits Requested Visits Authorized [id number] New Request 11/28/2022 12/23/2023 1 1 Chief Complaint and Reason for Visit Chief Complaint Admit Date 4 month follow up January 05, 2025 1:46 pm mouth sore February 27, 2025 1:0 0pm Reason for Visit Admit Date Chronic kidney disease January 05, 2025 1 :46pm Essential tremor January 05, 2025 1:46 pm YAEL (generalized anxiety disorder) January 05, 2025 1:46pm Reason for Visit Admit Date Chronic kidney disease January 05, 2025 1 :46pm Essential tremor January 05, 2025 1:46 pm YAEL (generalized anxiety disorder) January 05, 2025 1:46pm Enlargement oral labial frenulum February 27, 2025 1:00pm Oral ulcer February 27, 2025 1:0 0pm Additional Source Comments Reason for Visit (unrecogniz ed section and content) Reason Comments Pain Specialty Diagnoses / Procedures Referred By Contac t Referred To Contact Internal Medicine / Sports Medicine Procedures NEW PATIENT Self, Self Betzy Iyer MD [address] [facility] [address] [place] [address] Referral ID Status Reason Start Date Expiration Date V isits Requested Visits Authorized [id number] New Request 09/19/2022 10/14/2023 1 1 Reason Comments Pain Pt reports CSI has w orn off and they have not had benefits from PT. Denies accidents or new injuries. S/s and location of pain is the same. Reason Comments Tremors Reason Comments Mouth Lesions Reason Comments Oral ulceration Mouth lesion getting bigger Reason Comments Mouth Lesions 1 month check mouth lesion Care Teams (unrecognized sec tion and content) Road Conductor Relationship Specialty Start Date End Date Moreno Ryan DO [address] [place] [address] PCP - General Internal Medicine 09/19/22 Road Conductor Relationship Specialty Start Date End Date Moreno Ryan DO [address] [place] [address] PCP - General Internal Medicine 09/19/22 Road Conductor Relationship Specialty Start Date End Date Moreno Ryan DO [address] [place] [address] PCP - General Internal Medicine 09/19/22 Road Conductor Relationship Specialty Start Date End Date Moreno Ryan MD [address] [place] [address] PCP - General Internal Medicine 07/31/24 Jesus Alberto Pagan DO [address] [place] [address] Referring Physician Neurology 08/27/24 Road Conductor Relationship Specialty Start Date End Date Moreno Ryan MD [address] [place] [phone] PCP - General Internal Medicine 07/31/24 Jesus Alberto Pagan DO [address] [address] Referring Physician Neurology 08/27/24 Road Conductor Relationship Specialty Start Date End Date Moreno Ryan MD [address] [place] [phone] PCP - General Internal Medicine 07/31/24 Jesus Alberto Pagan DO [address] [address] Referring Physician Neurology 08/27/24 Road Conductor Relationship Specialty Start Date End Date Moreno Ryan MD [address] [place] [phone] PCP - General Internal Medicine 07/31/24 Jesus Alberto Pagan DO [address] [address] Referring Physician Neurology 08/27/24 Team Status: Active Member Role Status Dates Moreno Ryan DO Primary Care Provider Active Team Status: Inactive Member Role Status Dates Moreno Ryan DO Primary Care Provider Active Start: January 05, 2025 End: January 05, 2025 Moreno Ryan DO Attending Provider Active Sta rt: January 05, 2025 End: January 05, 2025 Team Status: Active Member Role Status Dates Moreno Ryan DO Primary Care Provider Active Start: January 07, 2025 Moreno Ryan DO Attending Provider Active Sta rt: January 07, 2025 Team Status: Inactive Member Role Status Dates Moreno Ryan DO Primary Care Provider Active Start: February 27, 2025 End: February 27, 2025 Moreno Ryan DO Attending Provider Active Sta rt: February 27, 2025 End: February 27, 2025 Road Conductor Relationship Specialty Start Date End Date Moreno Ryan DO [address] [place] [address] PCP - General Internal Medicine 07/31/24 Jesus Alberto Pagan DO [address] [place] [id number] Referring Physician Neurology 08/27/24 Road Conductor Relationship Specialty Start Date End Date Moreno Ryan DO [address] [place] [facility] [place] [address] PCP - General Internal Medicine 07/31/24 Jesus Alberto Pagan DO [address] [phone] Referring Physician Neurology 08/27/24 Road Conductor Relationship Specialty Start Date End Date Moreno Ryan DO [address] [place] [address] PCP - General Internal Medicine 07/31/24 Jesus Alberto Pagan DO [address] [phone] Referring Physician Neurology 08/27/24 Road Conductor Relationship Specialty Start Date End Date Moreno Ryan DO [address] [place] [facility] [place] [address] PCP - General Internal Medicine 07/31/24 eJsus Alberto Pagan DO [address] [address] Referring Physician Neurology 08/27/24 Road Conductor Relationship Specialty Start Date End Date Moreno Ryan DO [address] [place] [phone] PCP - General Internal Medicine 07/31/24 Jesus Alberto Pagan DO [address] [address] Referring Physician Neurology 08/27/24 Road Conductor Relationship Specialty Start Date End Date Moreno Ryan DO [address] [place] [phone] PCP - General Internal Medicine 07/31/24 Jesus Alberto Pagan DO [address] [address] Referring Physician Neurology 08/27/24 (unrecognized sect ion and content) No Status Records FoundNo Status Records FoundNo Status Records FoundNo Status Records Found INFORMATION SOURCE (unrecogn ized section and content) DATE CREATED AUTHOR 09/20/2022 [facility] DATE CREATED AUTHOR AUTHOR'S ORGANIZ ATION 11/01/2022 [facility] DATE CREATED AUTHOR AUTHOR'S ORGANIZ ATION 06/05/2024 [place] DATE CREATED AUTHOR AUTHOR'S ORGANIZ ATION 04/27/2025 [facility] EPIC Goals (unrecognized section and content) Goals may be documented in a n alternate section FOR RECORDS PERTAINING TO PATIENTS WHO ARE [...] BE BASED ON THE PRIMARY CLINICAL RECORDS. [facility] CenterPlace[facility] Media [facility]. provides no warranty or guarantee of the accuracy or completeness of information in this document.
== END 2025-05-05 13:25 | disposition home or self-care (01) ==
LOC: PST 13:24
PROVIDERS: PCP Internal Medicine; Visit Provider Otolaryngology
DX: Z01.818 Encounter for other preprocedural examination (principal); K12.1 Other forms of stomatitis

== ENCOUNTER 2025-05-14 10:01 | Day surgery (SDC) | payer OTHER, SELFPAY ==
--- NOTE | 2025-05-14 | OP_ITS ---
OPERATION DATE: 05/14/2025 SURGEON: Alana Mccabe M.D. PREOPERATIVE DIAGNOSIS: Lip ulcer. POSTOPERATIVE DIAGNOSIS: Lip ulcer. PROCEDURE: Biopsy of lip ulcer. ANESTHESIA: Lidocaine 1% with 1:100,000 epinephrine. COMPLICATIONS: None. FINDINGS: An 8 mm soft tissue and ulceration of the lower labial frenum. PROCEDURE: Patient identified in the holding area and taken back to the OR, where he was placed in the supine position. Lidocaine 1% with 1:100,000 epinephrine was injected around the lower labial frenum. After waiting adequate time for hemostasis and anesthesia, the face was prepped in a sterile fashion, and a 15 blade knife was used to obtain a biopsy of the patient?s ulceration. Hemostasis was achieved with pressure and silver nitrate. The patient was then taken to the recovery room and discharged. THANIA
--- OUTSIDE RECORDS SUMMARY | 2025-05-14 10:04 | XMS_ITS | Clinical Summary ---
Author Organization [facility] Address [id number] [address] [place] [address] Care Team Providers Care Electronic Masking System Operator Name Role Phone No Pcp, No Pcp Primary Care Provider Unavailabl e Allergies No known active allergies Medications No known medications Immunizations ImmunizationAdministration DatesNext CdtZhtk3003/21/2019 Social History Tobacco UseTypesPacks/DayYears UsedDateSmoking Tobacco: NeverAlcohol UseStandard Drinks/WeekCommentsYes0 (1 standard drink = 0.6 oz pure alcohol)1 beer a night ChildcareAnswerDate SqwjzdhiHmbkxchtuUxbqkaz92/12/2019EmploymentAnswerDate MqzmfflhMygowkhnwvIxsqekx59/12/2019Purpose - LifeAnswerDate RecordedPurpose and direction in wcpeTlcljdd59/11/2021Sex and Gender InformationValueDate Recorded Sex Assigned at BirthNot on fileLegal NrpNjdi4902/25/2015 12:02 PM EDTGender IdentityNot on fileSexual OrientationNot on file Last Filed Vital Signs Vital SignReadingTime TakenCommentsBlood Fikhiuuw885/7508 4:02 PM EDT Rchet2263 4:02 PM QJOZrgjjjicixz66.8 ??C (98.2 ??F)03/21/2019 4:02 PM EDTRespiratory Nghi0618 4:02 PM EDTOxygen Jqxcyypdrq45%03/21/2019 4:02 PM EDTInhaled Oxygen Concentration--Awgcml73.7 kg (200 lb)03/21/2019 4:02 PM EDT Dehyeb623.6 cm (5' 6 )03/21/2019 4:02 PM EDTBody Mass Index32.28003/21/2019 4:02 PM EDT Plan of Treatment Health MaintenanceDue DateLast DoneCommentsDepression Mhtxxjhyz12/19/1977Tobacco Hjlfuewdf18/19/1977Adult BMI Ohudjqxkm75/19/1983Zoster (Shingles) Vaccine (1 of 2)2015Influenza Kwnsfdh9603/23/2025DTaP,Tdap and Td Vaccines (2 - Td or Tdap) Medical Devices Not on file Insurance Care Teams Team MemberRelationshipSpecialtyStart DateEnd Date [place] [address] PCP - GeneralFaohly [facility]03/21/19
--- OUTSIDE RECORDS SUMMARY | 2025-05-14 10:04 | XMS_ITS | Clinical Summary ---
Author Organization [facility] Address [address] [place] [address] Care Team Providers Care Mold Maker Apprentice Name Role Phone Moreno Ryan DO Primary Care Provider [phone] Allergies Active AllergyReactionsCriticalityNoted DateCommentsMixed Fqphsst2109/19/2022 Medications No known medications Active Problems No known active problems Social History Tobacco UseTypesPacks/DayYears UsedDateSmoking Tobacco: Never AssessedSex and Gender InformationValueDate RecordedSex Assigned at BirthNot on fileLegal Sex Male08/28/2022 9:55 AM ESTGender IdentityNot on fileSexual OrientationNot on file Last Filed Vital Signs Vital SignReadingTime TakenCommentsBlood Pressure--Pulse--Temperature-- Respiratory Rate--Oxygen Saturation--Inhaled Oxygen Concentration--Weight-- Wgjqyo411.6 cm (5' 6 )12/14/2022 7:12 AM EDTBody Mass Index-- Plan of Treatment Health MaintenanceDue DateLast DoneCommentsHEPATITIS C VIRUS PYATKSPHF1965 HIV SCREENING CTUYYVURMP26/19/1980LIPID KQROPZDDQ90/19/2005COLORECTAL CANCER SCREENING PGIZHGYAWH77/19/2010PNEUMOCOCCAL VACCINE SERIES (1 of 1 - PCV) 2015ZOSTER (SHINGLES) VACCINE (1 of 2)2015PROSTATE CANCER SCREENING ILOQSMSGIE19/19/2020COVID-19 VACCINE (1 - 2024- season)2025INFLUENZA VACCINE (#1)03/23/20259111FLMFHPG84/30/RSV VACCINE (1 - 1-dose 75+ series)2040TDAP (ADULT)Laaddsmbf10/30/2019HEP B VACCINEAged OutNo longer eligible based on patient's age to complete this topic Insurance Care Teams Team MemberRelationshipSpecialtyStart DateEnd Date Moreno Ryan DO PCP - GeneralInternal Medicine09/19/22
--- OUTSIDE RECORDS SUMMARY | 2025-05-14 10:04 | XMS_ITS | Clinical Summary ---
Author Organization [facility] Address [address] [place] [address] Care Team Providers Care Tanbark Peeler Name Role Phone Moreno Ryan DO Primary Care Provider [phone] Matteo Pagan DO Unavailable [phone] Allergies No known active allergies Medications MedicationSigDispense QuantityRefillsLast FilledStart DateEnd DateStatus desvenlafaxine (Pristiq) 100 MG 24 hr tablet Take 100 mg by mouth Daily Do not crush, chew, or split.Active primidone (Mysoline) 50 MG tablet Indications:Essential tremorTake 1 tablet (50 mg) by mouth at bedtime 30 tablet tive hydrOXYzine HCl (Atarax) 25 MG tablet TAKE 1/2 (ONE-HALF) TO 1 (ONE) TABLET BY MOUTH TWICE DAILY UESUON2103/17/2025 Active Active Problems ProblemNoted DateDiagnosed DateADD (attention deficit disorder)03/10/2025 Bilateral /19/2025hronic kidney egtvxym2003/10/2025Diseases of lips 03/10/2025Essential dqincz9803/10/2025Generalized anxiety szjhjyla32/19/2025 Hearing loss03/10/20250251Iblobjc50/19/2025Oral ulcer03/10/2025Resting tremor 03/10/2025Mixed conductive and sensorineural hearing loss of left ear with restricted hearing of right ear03/10/2025Screening PSA (prostate specific antigen)03/10/2025 Overview (03/10/2025): PSA: 0.48 - 2018, 0.61 - 06/2024 Encounters DateTypeDepartmentCare OtwoFamynercpud18/01/2025Telephone [facility] [place] [facility] [address] [place] [address] Alana Mccabe MD return call04/21/2025 3:30 PM EDTOffice Visit [facility] [place] [facility] [address] [place] [address] Alana Mccabe MD Oral ulcer (Primary Dx)04/21/2025amboo flowsheet [facility] [place] [facility] [address] [place] [address] Alana Mccabe MD 04/21/20255854Ectxel86/02/2025 3:40 PM EDTOffice Visit [facility] [place] [facility] [address] [place] [address] Alana Mccabe MD Oral ulceration (Primary Dx)03/24/2025amboo flowsheet [facility] [place] [facility] [address] [place] [address] Alana Mccabe MD 03/24/20255778Btigqa55/27/2025Telephone [facility] [place] [facility] [address] [place] [address] Macy Talbot MA Mouth Umwhtyy6103/11/2025 3:20 PM EDTOffice Visit [facility] [place] [facility] [address] [place] [address] Alana Mccabe MD Oral ulceration (Primary Dx)03/11/2025Telephone [facility] [place] [facility] [address] [place] [address] Macy Talbot MA 03/11/2025amboo flowsheet [facility] [place] [facility] [address] [place] [address] Alana Mccabe MD 03/11/2025Travelfrom Last 3 Months Family History Medical HistoryRelationNameCommentsHeart attackFatherbladder cancerFathersmoker FatherHeart attackMaternal GrandmotherTremorMotherRelationNameStatusComments FatherDeceasedMaternal GrandmotherMotherAlive Social History Tobacco UseTypesPacks/DayYears UsedDateSmoking Tobacco: NeverSmokeless Tobacco: NeverAlcohol UseStandard Drinks/WeekCommentsYes4 (1 standard drink = 0.6 oz pure alcohol)Sex and Gender InformationValueDate RecordedSex Assigned at BirthNot on fileLegal JcmXuaw6210/04/2022 7:16 PM EDTGender IdentityNot on fileSexual OrientationNot on file Last Filed Vital Signs Vital SignReadingTime TakenCommentsBlood Wpgqfied142/9309 3:10 PM EDT Nbotv820304/21/2025 3:10 PM EDTTemperature--Respiratory Rate--Oxygen Tovefalliq91% 09/25/2024 10:12 AM ESTInhaled Oxygen Concentration--Bsbkyw99.5 kg (173 lb) 04/21/2025 3:10 PM YTOVqvioz007.6 cm (5' 6 )04/21/2025 3:10 PM EDTBody Mass Index27.9204/21/2025 3:10 PM EDT Plan of Treatment DateTypeDepartmentCare Team (Latest Contact Info)Ygajuqhpade63/04/2025 3:40 PM ESTOffice Visit [facility] [place] [facility] [address] [facility] [address] [place] [address] Alana Mccabe MD [address] [facility] [address] [place] [address] Health MaintenanceDue DateLast DoneCommentsCT Vyipuxiswdds1965Colonoscopy 1965Colorectal Cancer Qdmjzoknk1965FIT-DNA1965FIT1965 FOBT1965 4639Puuxwdhooanus1965Influenza Vaccine (#1)51, 04/25/2024, 05/07/2019, Additional history exists Insurance * Guarantor: Awais Gomes EAccount TypeRelation to PatientDate of BirthPhone Billing AddressPersonal/DctslhQqfo1965 [address] [address] Care Teams Team MemberRelationshipSpecialtyStart DateEnd Date Moreno Ryan DO [address] [place] [id number] PCP - GeneralInternal Medicine07/31/24 Matteo Pagan DO [address] [address] Referring PhysicianNeurolog08/27/24
--- OUTSIDE RECORDS SUMMARY | 2025-05-14 10:09 | XMS_ITS | CCD ---
Author Organization [facility] Care Team Providers Care Catalyst Operator Name Role Phone Moreno Ryan DO Primary Care Provider [phone] BETZY IYER Attending Unavailable MORENO RYAN Primary Care Unavailable SELF, SELF Referring Unavailable Moreno Ryan Unavailable ARIANA, DR WISE Admitting Unavailable BALL, DR WISE [...] Care Provider Jesus Alberto Pagan DO Unavailable Moreno Ryan DO Primary Care Provider [phone] Moreno Ryan DO Attending Provider Moreno Ryan DO Primary Care Provider Jesus Alberto Pagan DO Unavailable JESUS ALBERTO PAGAN Attending Unavailable MORENO RYAN Referring Unavailable ANA GR Attending Unavailable TIMMIALANA Ellis Attending Unavailable TIMALANA ZAIDI Attending Unavailable ALANA DAVILA Attending Unavailable Allergies Allergy ClassificationReported Allergen(s)Allergy TypeDate of OnsetReaction(s) Facility (3 sources)false ragweed pollen extract / western ragweed pollen extractDrug Fijcrjf74-63-1596[facility] (2 sources)patient allergy list reviewed by nurse or physiciaPropensity to adverse rnhihmrrg48-80-9751Jxttryw:isocket Other Medications Current Medications MedicationDrug Class(es)DatesSig (Normalized)Sig (Original)ALPRAZolam 0.25 mg oral tablet (4 sources)BenzodiazepineStart: 90-76-8786yven 1 tablet by mouth every twelve hoursALPRAZolam 0.25 MG 1 tablet Orally Twice a day for 30 days Mar, ActiveStart: 81-41-8332boym 1 tablet by mouth every twelve hoursALPRAZolam 0.25 MG 1 tablet Orally Twice a day for 30 days Aug, Hgrdro28 hr desvenlafaxine succinate 100 mg extended release oral tablet (16 sources)Serotonin and Norepinephrine Reuptake InhibitorStart: 04-78-1935ysbr 1 tablet by mouth every twenty-four hoursDesvenlafaxine Succinate 100 mg tablet extended release 24 hr Active MG PO July 21, 2024 1:00am Complies with drug therapytake 1 tablet by mouth once dailydesvenlafaxine (Pristiq) 100 MG 24 hr tablet Take 100 mg by mouth Daily Do not crush, chew, or split. Active hydrOXYzine hydrochloride 25 mg oral tablet (6 sources)AntihistamineStart: 45-63-2599xsqb 0.5-1 tablets by mouth twice daily as neededhydrOXYzine HCl (Atarax) 25 MG tablet TAKE 1/2 (ONE-HALF) TO 1 (ONE) TABLET BY MOUTH TWICE DAILY ASNEEDED 03/17/2025 Activeprimidone 50 mg oral tablet (18 sources)Anti-epileptic AgentStart: 27-62-7897mpbs 1 tablet by mouth at bedtimeprimidone (Mysoline) 50 MG tablet Indications: Essential tremor Take 1 tablet (50 mg) by mouth at bedtime 30 tablet 1 12/18/2024 ActiveStart: 09-25-2024 End: 62-98-6705blja 1 tablet by mouth at bedtimeprimidone (Mysoline) 50 MG tablet Indications: Essential tremor Take 1 tablet (50 mg) by mouth at bedtime 30 tablet 1 09/25/2024 11/24/2024 ActiveStart: 08-27-2024 End: 59-79-5435cmhx 0.5 tablet by mouth at bedtimeprimidone (Mysoline) 50 MG tablet Indications: Essential tremor 1/2 tablet PO at bedtime 60 tablet 2 08/27/2024 09/25/2024 Discontinued (Dose adjustment) Completed/Discontinued Medications MedicationDrug Class(es)DatesSig (Normalized)Sig (Original)24 hr amphetamine aspartate 2.5 mg / amphetamine sulfate 2.5 mg / dextroamphetamine saccharate 2.5 mg / dextroamphetamine sulfate 2.5 mg extended release oral capsule (2 sources)Central Nervous System StimulantStart: 07-21-2024 End: 02-84-2638gjfu 1 capsule by mouth every twenty-four hoursDextroamphetamine- Amphetamine 10 mg capsule,extended release 24hr Discontinued 10 MG PO Once July 21, 2024 1:00am January 05, 2025 2:00pm1 ml dexamethasone phosphate 4 mg/ml injection (2 sources)CorticosteroidStart: 09-19-2022 End: 87-72-0349siaWDWNOwtmqo (DECADRON) injection 4 mg10 ml lidocaine hydrochloride 10 mg/ml injection (2 sources)Antiarrhythmic, Amide Local AnestheticStart: 09-19-2022 End: 60-33-6647Ocvuvrwjx (XYLOCAINE) 10 mg/mL injection 4 mLSuprep Bowel Prep Kit 17.5-3.13-1.6 GM/180ML (4 sources)Start: 47-42-5241Tfoiel Bowel Prep Kit 17.5-3.13-1.6 GM/180ML 177 ML BOTTLE AT 4 PM AND ONE BOTTLE AT 11 PM DAY PRIOR TO PROCEDURE Orally Twice a day for 1 day(s) Jun, Not-Taking Problems Active Problems Problem ClassificationProblemDateDocumented DateEpisodic/ChronicAnxiety disorders (20 sources)Generalized anxiety disorder; Translations: [Generalized anxiety disorder]Onset: 02-13-3363HotbyduJfpwvtv kidney disease (13 sources)Chronic kidney disease; Translations: [Chronic kidney disease, unspecified]Onset: 835099-53-5230FzziopyRvvhbcff of mouth; excluding dental (20 sources)Ulcer of mouth; Translations: [Enlarged labial frenum]Onset: 12-92-0482EyehzgleNzkqxmrjc usually diagnosed in infancy, childhood, or adolescence (11 sources)Attention deficit hyperactivity disorder, predominantly inattentive type; Translations: [Other specified behavioral and emotional disorders with onset usually occurring in childhood and adolescence]Onset: ChronicHeadache; including migraine (8 sources)Migraine with aura; Translations: [Migraine with aura, not intractable, without status migrainosus]Onset: 81-47-9634IenfafrGzpygpznwkc of prostate (5 sources)Benign prostatic hyperplasia; Translations: [Benign prostatic hyperplasia without lower urinary tract symptoms]ChronicMood disorders (2 sources)Major depressive disorder, recurrent, moderate; Translations: [Major depressive disorder. recurrent. moderate]Onset: 35-06-3025ElciqsnFhvknhnmxvc deficiencies (2 sources)Vitamin D deficiency; Translations: [Vitamin D deficiency, unspecified]Onset: 87-81-6280XikezsyQdeum connective tissue disease (3 sources)Disorder of rotator cuff; Translations: [Unspecified disorder of synovium and tendon, left shoulder]EpisodicOther connective tissue disease (2 sources)Unspecified disorder of synovium and tendon, left shoulder; Translations: [Unspecified disorder of synovium and tendon, left shoulder]Onset: 45-35-5157JznzvoxcYopxg connective tissue disease (8 sources)Tendinitis of right rotator cuff; Translations: [Other shoulder lesions, right shoulder]EpisodicOther connective tissue disease (2 sources)Mass of shoulder region; Translations: [Other shoulder lesions, right shoulder]EpisodicOther ear and sense organ disorders (4 sources)Decreased hearing ; Translations: [Unspecified hearing loss, bilateral]ChronicOther ear and sense organ disorders (15 sources)Hearing loss; Translations: [Unspecified hearing loss, bilateral] Onset: 303339-38-3006GctyajcOkjap ear and sense organ disorders (4 sources)Sensorineural hearing loss, bilateral; Translations: [SENSORINEURAL HEAR LOSS BILATERAL]Onset: 45-10-2020CkzmihaPnhfn ear and sense organ disorders (9 sources)Mixed conductive AND sensorineural hearing loss; Translations: [Mixed conductive and sensorineural hearing loss, unilateral, left ear with restricted hearing on the contralateral side]Onset: 686673-31-9115OowtxvlBdxwe ear and sense organ disorders (9 sources)Bilateral tinnitus; Translations: [Tinnitus, bilateral]Onset: 891979-29-0234HprdgjnrAwamf hereditary and degenerative nervous system conditions (17 sources)Essential tremor; Translations: [Essential tremor]Onset: 03-10-2025 15-86-9796UqvzlqeJpvap hereditary and degenerative nervous system conditions (11 sources)Resting tremor; Translations: [Other specified forms of tremor] Onset: 106138-54-9573PcissshLhpze non-traumatic joint disorders (2 sources)Shoulder joint pain; Translations: [Pain in right shoulder]Episodic Other nutritional; endocrine; and metabolic disorders (17 sources)Obesity; Translations: [Obesity, unspecified]Onset: 03-10-2025 99-53-8500VoszhcxKlhqq nutritional; endocrine; and metabolic disorders (6 sources)Body mass index 30+ - obesity; Translations: [Obesity, unspecified] Onset: 17-51-1774JaagmweBqxnh nutritional; endocrine; and metabolic disorders (2 sources)Obese class I; Translations: [Body mass index (BMI) 32.0-32.9, adult] Onset: 24-49-6322AeykbruOottf nutritional; endocrine; and metabolic disorders (4 sources)Body mass index 25-29 - overweight; Translations: [Overweight] EpisodicOther nutritional; endocrine; and metabolic disorders (1 source)OverweightEpisodicOther nutritional; endocrine; and metabolic disorders (2 sources)Overweight; Translations: [Overweight]EpisodicOther screening for suspected conditions (not mental disorders or infectious disease) (20 sources)Decreased testosterone level ; Translations: [Other specified abnormal findings of blood chemistry]Onset: 22-52-0782BsvtukzkRdramlv on above: PSA: 0.48 - 2019, 0.61 - 06/2024Other upper respiratory disease (2 sources)Seasonal allergic rhinitis; Translations: [Other seasonal allergic rhinitis]Onset: 32-80-1989CytbyxpBsdyekg and strains (1 source)Strain of unspecified muscle, fascia and tendon at shoulder and upper arm level, left arm, initial encounterEpisodicUnclassified (1 source)K12.1 - Other forms of stomatitis,K13.0 - Diseases of lips Past or Other Problems Problem ClassificationProblemDateDocumented DateEpisodic/ChronicAcute bronchitis (2 sources)Acute bronchitis; Translations: [Acute bronchitis, unspecified]Onset: 76-17-7622KxshgwdqKrtlp nutritional; endocrine; and metabolic disorders (2 sources)Simple obesity ; Translations: [Other obesity due to excess calories] Resolved: 26-07-9529YgypqirVkimc upper respiratory infections (2 sources)Acute sinusitis; Translations: [Acute sinusitis, unspecified]Onset: 76-51-3521Srqpjnob Results Test NameValueInterpretationReference RangeFacilityEstimated glomerular filtration rate (GFR) non- AmericanOrdered By: Moreno Ryan on 77-94-6984FGR/1.73 sq M.predicted among non-blacks MDRD (S/P/Bld) [Vol rate/Area]mL/min/{1.73_m2}>=60 mL/min/1.73m 2FMetroHealth Main Campus [facility] Center Laboratory - Chemistry and Chemistry - challengeOrdered By: Moreno Ryan on 32-16-6547Qnvofqm [Mass/Vol]9.1 mg/dL8.5-10.1FMetroHealth Main Campus Medical Center Chloride [Moles/Vol]101 mmol/X67-878XpkutzqxxAvita Health System Galion HospitalCO2 [Moles/Vol]26.9 mmol/L21.0-32.0[facility] HospitalCreatinine [Mass/Vol]1.17 mg/dL0.70-1.30[facility] HospitalGFR/1.73 sq M.predicted MDRD (S/P/Bld) [Vol rate/Area]mL/min/{1.73_m2}>=60 mL/min/1.73m 2 [facility] HospitalGlucose [Mass/Vol]91 mg/mV80-346MxcwgfphqAvita Health System Galion HospitalPotassium [Moles/Vol]4.3 mmol/L3.5-5.1FAkron Children's Hospitalodium [Moles/Vol]138 mmol/X363-399AnnvvsshrAvita Health System Galion HospitalUrea nitrogen [Mass/Vol]24.0 mg/dLHigh7.0-18.0[facility] HospitalUrea nitrogen/Creatinine [Mass ratio]20.5 mg/mgCentervilleerum or plasma anion gap determinationOrdered By: Moreno Ryan on 79-66-9136Reoly gap [Moles/Vol]14.4 mmol/LFMetroHealth Main Campus Medical CenterXR Shoulder - left 2 Viewson 90-32-2500CNQFAOKVBR: Sequela of chronic rotator cuff pathology. Status post prior distal clavicular resection and labral repair. RADIOLOGYEXAM: XR SHOULDER LEFT 3 VIEWS, 11/28/2022 09:30 [...] the glenoid. Joint: Glenohumeral joint is anatomic. Shade Perdomo DO - 11/28/2022 EXAM: XR SHOULDER LEFT [...] prior distal clavicular resection and labral repair. [facility] CenterRadiology Study observation (narrative)[facility] CenterXR Shoulder - left 2 ViewsOrdered By: Shade Kaur on 12-34-9691KRJLakeHealth Beachwood Medical Center Work Phone: LARGE JOINT/BURSA INJECTION AND/OR ASPIRATION: L subacromial bursaon 53-09-3527EmiupueBetzy Iyer MD 09/19/2022 10:15 AM LARGE JOINT/BURSA [...] sterile fashion. The patient was prepped with Chloraprep.[facility] CenterRad[facility] observation (narrative)[facility] MRI BRAIN WO W CONon 34-62-5921PYM BRAIN WO W CONMRI BRAIN WO W CON 07/26/2022 12:26 PM [...] or midline shift. No intracranial hemorrhage on susceptibility-weighted images. There is no restricted diffusion. Ventricles [...] authenticated by: JESUS ALBERTO BHAKTA Date: 2022-07-26 13:50Normal [facility] CenterTESTOSTERONE, TOTALon 83-16-6402Kdypdpvjiaxf [Mass/Vol]529 ng/wVZiijbv775-014Dyq [facility] CenterComment on above:Result Comment: Adult male reference interval is based on a population of healthy nonobese males (BMI <30) between 19 and 39 years old. Won et.al. JCEM 2017,102;0214-3571. PMID: 62524013.Performed By: #### TESTTOT #### [facility] [address] [place] [address] Dr. Hector Monroe Vital Signs Date TimeVital SignValuePerforming ExupcnkfeFzhirqps63-73-3246 15:10-0400Body qcatvn399.6 cmHihaider Davila MD Work Phone: [facility] HospitalAonywsvcda88-20-2384 15:10-0400Body mass index (BMI) [Ratio]27.92 kg/s4Rmzddxhaider Davila MD Work Phone: [phone] [place], [place] [address]Fsxpywffhu48-30-5847 15:10-0400Body .47 kgAlana Davila MD Work Phone: [phone] HospitalUoqkoovaqp79-53-5074 15:10-0400Diastolic blood mm[Hg]Alana Davila MD Work Phone: [phone] HospitalNapxyjxuxq84-99-2544 15:10-0400Heart rate97 /min Alana Davila MD Work Phone: [phone] HospitalYehydsfvlw88-81-6414 15:10-0400Systolic blood idnxytib687 mm[Hg]Alana Davila MD Work Phone: [phone] HospitalAwlwnzzkky01-50-4200 15:29-0400Body rfpwam852.6 cmAlana Davila MD Work Phone: [facility] HospitalTyevmakvde20-11-4990 15:29-0400Body mass index (BMI) [Ratio]27.92 kg/a4GzonwxAlana Davila MD Work Phone: [phone] HospitalYdnutajugt62-95-7765 15:29-0400Body .47 kgAlana Davila MD Work Phone: [phone] [place], [place] [address]Uuoafxuyen01-65-0597 15:29-0400Diastolic blood wsgakqqp77 mm[Hg]Alana Davila MD Work Phone: [phone] [place], [place] [address]Rsfsmftwdc88-37-1439 15:29-0400Heart hqkv279 /min Alana Davila MD Work Phone: [phone])[facility]6205[facility] HospitalWqpjqmzwow54-57-0356 15:29-0400Systolic blood ystkvpnf398 mm[Hg]Alana Davila MD Work Phone: [phone] [place], [place] [address]Ogqzqfkpmh63-66-5417 15:26-0400Body cbrdxi692.6 cmAlana Davila MD Work Phone: [phone] [place], [place] 8751208-20-2025 15:26-0400Body mass index (BMI) [Ratio]27.92 kg/g4VtrgppAlana Davila MD Work Phone: [phone] [place], [place] [address]Ryvcvvppbh07-72-1387 15:26-0400Body ulkjap90.47 kgAlana Davila MD Work Phone: [phone] [place], [place] 8751208-20-2025 15:26-0400Diastolic blood ypywwnvu38 mm[Hg]Alana Davila MD Work Phone: [phone] [place], [place] [address]Znxterncgt12-34-1024 15:26-0400Heart rate90 /min Alana Davila MD Work Phone: [place] [address]Utiucddkre18-62-3137 15:26-0400Systolic blood kybdtdaq340 mm[Hg]Alana Davila MD Work Phone: [phone]6049[facility] HospitalMxinempsdc67-28-7117 13:10-0400Body izacrh438.64 cmBenjamin Ball DO Work Phone: [facility]08-08-2025 13:10-0400 Body mass index (BMI) [Ratio]28 kg/h1Szpcfrcq Ball DO Work Phone: 1(419)[address] [place], [place] 9492908-08-2025 13:10-0400 Body dkmivf87.64 kgBenjamin Ball DO Work Phone: [phone] [place], [place] 9492908-08-2025 13:10-0400 Diastolic blood pzevaksx66 mm[Hg]Moreno Ball DO Work Phone: [phone])[address] [place], [place] 9492908-08-2025 13:10-0400 Heart lyjx210 /minBenjamin Ball DO Work Phone: [phone])[address] [place], [place] 9492908-08-2025 13:10-0400 Respiratory rate12 /minBenjamin Ball DO Work Phone: [phone])[address] [place], [place] 9492908-08-2025 13:10-0400 Systolic blood mm[Hg]Moreno Ball DO Work Phone: [phone])[address] [place], [place] 9492906-16-2025 13:54-0400 Body .64 cmBenjamin Ball DO Work Phone: [phone])[address] [place], [place] 949[address]06-16-2025 13:54-0400 Body mass index (BMI) [Ratio]28.8 kg/w5Xgzsqrje Ball DO Work Phone: [phone])[address] [place], [place] 9492906-16-2025 13:54-0400 Body qylugr83.9 kgBenjamin Ball DO Work Phone: [phone] [place], [place] 9492906-16-2025 13:54-0400 Diastolic blood mvceebok13 mm[Hg]Moreno Ball DO Work Phone: [phone])[address] [place], [place] [address]49[address]06-16-2025 13:54-0400 Heart rate88 /minBenjamin Ball DO Work Phone: [phone])[address] [place], [place] 949[address]06-16-2025 13:54-0400 Respiratory rate12 /minBenjamin Ball DO Work Phone: [phone] [place], [place] 949[address]06-16-2025 13:54-0400 Systolic blood cuuphaqk138 mm[Hg]Moreno Ball DO Work Phone: [facility]03-06-2025 10:12-0500 Body mass index (BMI) [Ratio]30.34 kg/g2EkgrdAna Gr [employer] Work Phone: [facility] HospitalMyftxoczrm83-82-6161 10:12-0500Body wecxlc72.28 kgAna Gr [employer] Work Phone: [facility] HospitalJkqwijejpf20-70-9297 10:12-0500Diastolic blood bkimilbe00 mm[Hg]Ana Gr [employer] Work Phone: [facility] HospitalTmfwtqsaxx27-99-4648 10:12-0500Heart nilk124 /min Ana Gr [employer] Work Phone: [facility] HospitalZzqghfnycc66-86-1482 10:12-3049UcY5% (BldA) [Mass fraction]98 %Ana Gr [employer] Work Phone: [facility] HospitalSbwfcgsrnf94-56-6149 10:12-0500Systolic blood zscgeiop144 mm[Hg]Ana Gr [employer] Work Phone: [facility] HospitalBpvbyfyype80-85-2732 08:24-0500Body mass index (BMI) [Ratio]30.57 kg/c9Pvtxtmgcksj Hassett DO Work Phone: [facility] HospitalPxbenyjhpo03-29-5556 08:24-0500Body aevukj60.91 kgChristopher Priceett DO Work Phone: [facility] HospitalRyxnejskbo42-27-7702 08:24-0500Diastolic blood qtdbcwau16 mm[Hg]Jesus Alberto Pagan DO Work Phone: [facility] HospitalZfchlczsqk78-96-5853 08:24-0500Heart rate74 /min Jesus Alberto Pagan DO Work Phone: [facility] HospitalSbfqvjwdao32-16-3414 08:24-7349ZdV5% (BldA) [Mass fraction]98 %Jesus Alberto Pagan DO Work Phone: [facility]OS[facility] CenterBdkjdrtspr41-38-8083 08:24-0500Systolic blood ygmbonaz362 mm[Hg]Jesus Alberto Pagan DO Work Phone: noms Yqdgheqluu56-57-7035 10:30-0500Body bapdra194.64 cmBenjamin Ball Other [employer] Other 01-24-2023 10:30-0500Body mass index (BMI) [Ratio] 26.14 kg/m8Qlmsefji Ball Other [employer] Other 01-24-2023 10:30-0500Body yxduht53.48 kgBenjamin Ball Other [facility] [employer] Other 01-24-2023 10:30-0500Diastolic blood mm[Hg] Moreno Ball Other [facility] [employer] Other 01-24-2023 10:30-0500Respiratory rate12 /minBenjamin Ball Other [employer] Other 01-24-2023 10:30-0500Systolic blood kgwujaqg770 mm[Hg] Moreno Ball Other [employer] Other Encounters Encounter DateEncounter TypeCare ProviderFacilityStart: 04-21-2025 End: 34-84-8348Lkzzvi outpatient visit 25 minutesAlana Davila MD Work Phone: noms Nicole OtolaryngologyComment on above:Oral ulcer (Primary Dx)Start: 04-21-2025 End: 73-58-4446qlbfpqkkptXNORXJ H TIMMISNot AvailableStart: 04-21-2025 End: 30-79-1633Zpmisi Ny Davila MD Work Phone: n[facility] Nicole OtolaryngologyStart: 04-21-2025 End: 02-37-0360Dwtxoidaisy Barretomis MD Work Phone: NOFW Nicole OtolaryngologyStart: 03-24-2025 End: 46-30-8062Cjapqz outpatient visit 15 minutesAlana Davila MD Work Phone: noms Nicole OtolaryngologyComment on above:Oral ulceration (Primary Dx)Start: 03-24-2025 End: 44-11-6845mwvhabyxusMDWWOM H TIMMISNot AvailableStart: 03-24-2025 End: 60-50-4043Bjghkw Ny Davila MD Work Phone: n[facility] Nicole OtolaryngologyStart: 03-24-2025 End: 95-10-8717Deimxl Ny Davila MD Work Phone: NOXL Nicole OtolaryngologyStart: 03-11-2025 End: 44-26-5104bebsrpsonjUSGHZU H TIMMISNot AvailableStart: 03-11-2025 End: 74-85-8431Kqjwvq outpatient visit 25 minutesHihaider Davila MD Work Phone: noms Nicole OtolaryngologyComment on above:Oral ulceration (Primary Dx)Start: 03-11-2025 End: 07-65-2831Fkznuy Ny Davila MD Work Phone: NOMS Nicole OtolaryngologyStart: 03-11-2025 End: 56-43-8071Mtsvwd Ny Davila MD Work Phone: NOM[facility] Nicole OtolaryngologyStart: 02-27-2025 End: 35-92-1825lqhdeltniuArjfnunb Ball DO Work Phone: [facility] Work Phone: Start: 02-27-2025 End: 35-66-6370Sgntlfb encounter procedureBenjamin Ball DO-[facility] Work Phone: Start: 45-39-4687Reb-patient / Non-visitOrvillejasmin Ryan DO-[facility] Work Phone: Start: 01-05-2025 End: 01-19-4952Pqvxcds encounter procedureOrvillejasmin Ryan DO-[facility] Work Phone: Start: 09-25-2024 End: 69-73-0268Tdwijy Stephanie Gr [employer] Work Phone: aNA BELLEVUEStart: 09-25-2024 End: 52-10-7833Paqkhj flowsTaylor Gr [employer] Work Phone: aNA BELLEVUEStart: 09-25-2024 End: 37-36-2563Eyqzdg outpatient visit 25 minutesSasary Gr [employer] Work Phone: aNA BELLEVUEComment on above:Essential tremorStart: 09-25-2024 End: 92-00-7684kyeoftnfyoDNZWN CARROLLNot AvailableStart: 08-27-2024 End: 86-93-9265Lsxtul flowsheetChristopher Latasha DO Work Phone: aNA BELLEVUEStart: 08-27-2024 End: 42-50-9637Syapfs flowsheetChristopher Latasha DO Work Phone: aNA BELLEVUEStart: 08-27-2024 End: 17-15-6630Nmmtes outpatient new 45 minutesChristopher Latasha DO Work Phone: aNA BELLEVUEComment on above:Essential tremor (Primary Dx)Start: 08-27-2024 End: 69-04-2963gizlgdxwlqXHUDQLZMVFV HASSETTNot AvailableStart: 07-17-2024 Patient encounter statusLonmichellejasmin Ryan DO Work Phone: Centervilletart: 08-14-2023 End: 32-57-3714furksttaduPnthtrYcafv: 06-01-2023 End: 08-40-8341ekjrslckftHielszue Ball Other [employer] Other Start: 47-29-1194Gyvdyrgxb encounterBenjamin BallFPG Ball Medical ClinicStart: 04-12-2023 End: 79-26-7763viciwptufgJwpmwdli Ball Other [employer] Other Start: 79-03-3123Wtleryf encounter procedureBenjamin BallFPG [facility] Medical ClinicStart: 11-48-5793Uozluaqmy encounterBenjamin BallFPG [facility] Medical ClinicStart: 11-28-2022 End: 33-25-3936Wodnqorsqx hospital visit by physicianBetzy Iyer MD Work Phone: [facility] Care EastComment on above:Arrived Start: 11-28-2022 End: 24-64-1222Snwlht outpatient visit 15 minutesBetzy Iyer MD Work Phone: [facility] Outpatient Care EastComment on above: Dysfunction of left rotator cuff (Primary Dx)Start: 39-02-1153jbbuyepahrAV MORENO BALLFacility:M5Esedj: 68-74-1009pmrcmbysxkRHZTUQX R TISO Facility:[facility] CAMPUStart: 09-19-2022 End: 90-18-7786Jcnypg outpatient new 30 minutesBetzy Iyer MD Work Phone: [facility] Outpatient Care EastComment on above: Dysfunction of left rotator cuff (Primary Dx)Start: 09-04-2022 End: 93-81-5328hljrwdhmmoEvwqrlth Ball Other [employer] Other Start: 18-68-3387Elcxmjw encounter procedureBenjamin BallFPG [facility] Medical ClinicStart: 07-09-3101Keqbborfn encounterBenjamin BallFPG [facility] Medical ClinicStart: 08-15-2022 End: 62-18-0496klodleiketDcmsqbae Ball Other [employer] Other Start: 94-70-5039Eycacpv encounter procedureBeshiv Ryan Medical ClinicStart: 75-84-1179Ojvuoenp preventive med est patient 40-64yrsBeshiv Ryan Medical ClinicStart: 92-68-4985Kmqphwo encounter statusBeshiv Ryan Other [employer] Other Start: 07-26-2022 End: 56-07-0955scmkzhdzvfAI ALANA GIOVANNIFacility:M7Mniqa: 11-16-2021 End: 63-29-1193wwnwxnehwxWI MORENO RYANFacility:D2Znpau: 89-46-4555Vuwpo health examinationBeshiv Ryan Other [facility] [employer] Other Procedures DateProcedureProcedure DetailPerforming ClinicianStart: 23-09-9246Qewzw shoulder complete minimum 2 viewsBetzy Iyer MD Work Phone: Start: 71-30-7219Lunxnaxdjtmcnv aspir&/inj major jt/bursa w/o usBetzy Iyer MD Work Phone: Start: 83-27-8180Cacphsv examination of patient Moreno Ryan Other Depression screeningMoreno Ryan Other Screening for malignant neoplasm of colonMoreno Ryan Other Plan of Treatment DateCare ActivityDetailAuthorStart: 95-67-9437Zunbmci vaccinationTETANUSOSU JacobWood County Hospital CenterStart: 04-22-2025 End: 58-72-2715Qpfuhqo encounter gxdztlmoq55/01/2025 3:30 PM EDT Office Visit [facility] [address] [place] [address] Alana Davila MD [address] [place] [address] [facility] Fan OtolaryngologyStart: 04-21-2025 End: 75-69-9930Wtnkyty encounter ejutktefm31/30/2025 3:30 PM EDT Office Visit [facility] [place] [facility] [address] [place] [address] Alana Davila MD [address] [place] [address] ArrivedNOMS [place] OtolaryngologyComment on above:ArrivedStart: 03-25-2025 End: 53-02-2129Bbfnyvw encounter hdlurwekd71/03/2025 2:30 PM EDT Office Visit [facility] [place] [facility] [address] [place] [address] Alana Davila MD [address] [place] [address] [facility] [place] OtolaryngologyStart: 03-24-2025 End: 54-04-0610Yyoqnrb encounter ctxuvxasc28/02/2025 3:40 PM EDT Office Visit [facility] [place] [facility] [address] [place] [address] Alana Davila MD [address] [place] [address] ArrivedNOMS [place] OtolaryngologyComment on above:ArrivedStart: 97-59-2363Tdhtsvphi vaccinationInfluenza Vaccine (#1)[facility] HealthcareStart: 39-78-8213Eyczxne referralOhiohealth Mansfield Hospital Work Phone: Start: 12-16-2024 End: 15-29-5611Bibavfv encounter uybfgutro50/27/2025 10:40 AM EDT Office Visit YARELIS CRUZ [address] [place] [address] Ana Gr NP [address] [place] [address] YARELIS ORTIZtart: 09-25-2024 End: 95-26-5336Egatbeu encounter procedureANA MARTINEComment on above:Arrived Start: 08-27-2024 End: 42-71-9313Tvmrvub encounter yuzwqojuy84/05/2025 8:30 AM EST Office Visit YARELIS [place] [address] [place] [address] Jesus Alberto Pagan DO [address] [place], [place] [address] [address] ArrivedANA [place]ARTINEComment on above:ArrivedStart: 03-23-2023 Influenza vaccinationINFLUENZA VACCINE (Season Ended)[facility] Start: 12-14-2022 End: 36-04-3613Jkgfida encounter ojfkpmhvr84/25/2023 Appointment Magnetic Resonance Imaging Betzy Iyer MD [address] [place] [address] Imaging Outpatient Care [facility] Start: 11-28-2022 End: 36-22-5558LE Shoulder - left WO contrastMRI SHOULDER LEFT WITHOUT CONTRAST Imaging Routine Dysfunction of left rotator cuff Expected: 11/28/2022, Expires: 11/29/2023[facility] Medical CenterComment on above:Expected: 11/28/2022, Expires: 11/29/2023Start: 71-63-4872Lygkxjvkd vaccinationINFLUENZA VACCINE (#1) [facility] Campustart: 46-52-1192Oyqnlzxh specific antigen measurement PROSTATE CANCER SCREENING DISCUSSIONOSSt. Mary's Medical Centertart: 2015 Zoster vaccine hzv live for subcutaneous useZOSTER (SHINGLES) VACCINE (1 of 2) [facility] Campustart: 47-09-3808Smkjsnecd for malignant neoplasm of colonCOLORECTAL CANCER SCREENING DISCUSSIONOSU Keenan Private Hospitaltart: 12-21-2510Iaxht panelLIPID SCREENINGOSU Keenan Private Hospitaltart: 1980 HIV screeningHIV SCREENING DISCUSSIONOSU [facility] Private Hospitaltart: 1965 COVID-19 VACCINE (#1)COVID-19 VACCINE (#1)[facility] Hospital[facility]art: 43-70-9010Owsniopsv C screeningHEPATITIS C VIRUS SCREENINGOSU Keenan Private Hospitaltart: 38-72-8359Xnfrfvntl for malignant neoplasm of colonINTERMOUNTAIN [facility] Healthcare Patient referralOhiohealth Mansfield Hospital Work Phone: Immunizations Immunization DateImmunizationNotesCare RznzqrorIdbhppoy27-66-9194uyjyvlnbz virus vaccine, unspecified formulationAlana Davila MD Work Phone: [facility] Healthcare Payers DatePayer CategoryPayerPolicy [id number] Health InsuranceMEDICAL MUTUAL [id number] MUTUAL MMO [id number] 2018-Present [address] [place] [address] [id number] 2..1.623802.3.[id number] 2..1.00788[id number] 2..1.488539.3.57[id number] 2.16.840.1.3583[id number] 2.16.840.1.934814.3.5[id number] 2.16.840.1.783694.3.57[id number] 2.16.840.1.168692.3.5[id number] 2.16.840.1.400043.3.57[id number] 2.16.840.1.880632.3.579.2.881554-22-3969Ofit-[id number] [id number] Social History DateTypeDetailFacilityTobacco smoking status NHISTobacco smoking consumption unknownNOMS HealthcareStart: 98-01-7258Tjp Assigned At BirthNot on fileOSU Keenan Private Hospitaltart: 09-09-2022 End: 73-76-0596Muhthfcg to SARS-CoV-2 (event)Unable to assessOSU Keenan Private Hospitaltart: 09-25-2024 End: 79-23-6731Xmy Assigned At [facility] [employer] Other Start: 55-05-3449Izfmafi smoking status NHISEx-smoker [facility] HealthcareHistory of tobacco useCurrent smokerNOMS HealthcareHistory of tobacco useCigarette SmokerNOMS HealthcareStart: 23-51-4994Unhwemf use and exposureFormer smokeless tobacco userNOMS HealthcareStart: 09-25-2024 End: 77-79-2570Midklrgck beverage intakeCurrent drinker of alcohol (finding)[facility] HealthcareStart: 09-25-2024 End: 19-12-9043Rccryzb of Social functionNOMS HealthcareStart: 07-21-2024 End: 62-97-9240Nxfwyrg smoking status NHISNever smoked tobacco (finding) CentervilleexMale (finding)Centervilletart: 91-67-8140Wra Assigned At [facility]tart: 01-83-3760Drkxzgr use and exposureSmokeless tobacco non-userN[facility]S Healthcare Clinical Notes 08-15-2022 to 03-24-2025 Note Date & GkzyEltjSyfxauvf77-01-8156 History of Present illness Narrative* Alana Davila MD - 03/24/2025 3:40 PM EDT Subjective Patient ID: Abiola Gomes is a 59 y.o. male who presents for Oral ulceration (Mouth lesion gettingbigger) Family History Problem Relation Name Age of [...] refilled. Recheck one month documented in this encounterCedar County Memorial HospitalPkqjxqrbqv73-74-7343 History of Present illness Narrative* Alana Davila MD - 03/11/2025 3:20 PM EDT Subjective Patient ID: Abiola Gomes [...] Bx if not improving documented in this [facility]06-16-2025 Evaluation note* Diagnosis Onset Date Resolution Status Admit Date Chronic kidney disease acuteJune 2024 1:46pmEssential tremoracuteJune 2024 1:46pmGAD (generalized anxiety disorder)acuteCritical Access Hospitale 2024 1:46pm [facility] Work Phone: 1(250) 562-837406-16-2025 Evaluation note* Diagnosis Onset Date Resolution Status Admit Date Chronic kidney disease acuteJune 2024 1:46pmEssential tremoracuteJune 2024 1:46pmGAD (generalized anxiety disorder)acuteJune 2024 1:46pmEnlargement oral labial frenulumacuteAugust 2024 1:00pmOral ulceracuteAugust 2024 1:00pm [facility] Work Phone: 1(930) 391-466303-06-2025 Instructions* Patient Instructions* Ana Gr NP - 09/25/2024 10:20 AM EST Increase primidone to 50 mg by mouth once daily at bedtime documented in this [facility]02-05-2025 History of Present illness Narrative* Jesus Alberto [...] , wrist extensors , wrist flexor , resident in diagnostic radiology strength 5/5. LUE Strength deltoid , biceps , triceps , wrist extensors , wrist flexor , resident in diagnostic radiology strength 5/5. RLE Strength illopsoas, quadriceps, tibialis [...] reflex 2+ . Colby's sign negative. Coordination: Qjmwlq-mg-jfka testing and rapid alternating movements are normal [...] plan, and return instructions documented in this encounterCedar County Memorial HospitalOapupexdtr51-23-1591 Evaluation note* Encounter Date Diagnosis Assessment Notes Treatment Notes Treatment Clinical Notes Mar, Annual physical exam (ICD-10 - Z 00.00) [employer] Other 05-09-2023 History of Present illness Narrative* [...] CONTRAST Betzy Iyer MD documented in this encounterLakeHealth [facility]02-28-2023 History of Present illness Narrative* David Pichardo [...] was prepped with Chloraprep. documented in this encounterOSAdena [facility]02-28-2023 Instructions* Patient Instructions* Betzy Iyer MD - [...] -Excessive swelling -Drainage documented in this encounterOSU [facility] Evaluation note * Encounter Date Diagnosis Assessment Notes Treatment Notes Treatment Clinical Notes Aug, Annual physical exam (ICD-10 - Z 00.00) [employer] Other 01-24-2023 Evaluation note* Encounter Date Diagnosis Assessment Notes Treatment Notes Treatment Clinical Notes Jul, Annual physical exam (ICD-10 - Z 00.00) Healthy diet and exercise. Reviewed age-appropriate preventive testing recommended. Jul,eneralized anxiety disorder (ICD-10 - F41.1)Healthy diet, exercise and proper sleep routine Jul,Overweight (BMI 25.0-29.9) (ICD-10 - E66.3)This patient has been instructed on a low-fat, high-fiber diet. They are instructed to reduce calori es, portion sizes and snacks. It is recommended that they exercise for 30 minutes, 3-5 times weekly. He has lost 30lbs over the past year Jul,enign prostatic hyperplasia without lower urinary tract symptoms (ICD-10 - N40.0)Yearly PSA and ZULMA Jul,Strain of left shoulder, initial encounter (ICD-10 - S46.912A)ROM exercises, ice/heat and Voltaren Jul,Screening PSA (prostate specific antigen) (ICD-10 - Z12.5) [facility] [employer] Other Evaluation note* Diagnosis Dysfunction of left rotator cuff- Primary documented in this encounter [facility] CenterEvaluation [facility]* Diagnosis Dysfunction of left rotator cuff- Primary Dysfunction of left rotator cuff documented in this encounter [facility] CenterEvaluation [facility]* Diagnosis Dysfunction of left rotator cuff documented in this encounter [facility] CenterEvaluation noteNo InformationNortBarix Clinics of [place] [employer] Other Evaluation note* Diagnosis Essential tremor- Primary [...] Date Medical History Decreased hearing, bilateral Medical HistoryMigraine with aura and without status migrainosus, not intractableMedical HistoryGeneralized anxiety disorderMedical HistoryLow testosterone in maleMedical HistoryRight rotator cuff tendinitisMedical History ObesitySurgical Historyright biceps tendon repairSurgical Historyleft biceps tendon repairHospitalization Historysee surgical history [place] [employer] Other History of Present illness Narrative* Alana [...] bx under local anesthesia documented in this encounterSaint Francis Medical Centerspital Discharge instructions Ambulatory Orders* Referral to ENT Time Frame: 02/27/25, Location: None [facility] Work Phone: Reason for referral (narrative)* Consultation (Routine) - Patient to ArrangeSpecialtyDiagnoses / ProceduresReferred By ContactReferred To [facility] Sports Diagnoses Dysfunction of left rotator cuff Betzy Iyer MD [address] [place] [address] Referral IDStatusReasonStart DateExpiration DateVisits RequestedVisits [id number] to Arrange Scheduling Instructions [facility] [address] [facility], [address] [place] [address] Fax [facility] (Neck and Back Therapy) [address] [place] [address] FAX [facility] [address] [address] FAX Outpatient Rehabilitation Outpatient [facility] [address] [facility] [address] [place] [address] [phone] FAX [facility] [address] [place] [address] FAX Physical Therapy at [address] [address] FAX [facility] [address] [place] [address] FAX Continued on next page Outpatient Rehabilitation Outpatient Care [address] [place] [address] FAX [facility] [address], [address] [place] [address] FAX [facility] CenterReason for referral (narrative)No reason for referral information availableOhiohealth Mansfield Hospital Work Phone: Reason for visit Narrative* Consultation (Routine) - ClosedSpecialtyDiagnoses / ProceduresReferred By ContactReferred To Contact Neurology Diagnoses Essential tremor Procedures OK OFFICE/OUTPATIENT [facility] 30 MINUTES Moreno Ryan MD [address] [place] [address] Phone: tel: fax: Jesus Alberto Pagan DO [address] [place] [address] Phone: tel: fax: Referral IDStatusReasonStart DateExpiration DateVisits RequestedVisits [id number] Consult and Treat / [facility] Summary Purpose Family History No Family History Records Found Relationship Condition Age at Onset Recorded Date/T abram father Heart disease Unknown Malignant neoplasmUnknown Advance Directives No Advanced Directives Records Found Advance Directive Response Recorded Date/ Time Advance Directives No June 23, 2024 4:14pm Reason for Referral SpecialtyDiagnoses / ProceduresReferred By ContactReferred To Contact Diagnoses Dysfunction of left rotator cuff Procedures MRI SHOULDER LEFT WITHOUT CONTRAST OK MRI, JOINT UPPER EXTREM Betzy Iyer MD [address] [facility] [address] [place] [address] Referral IDStatusReasonStart DateExpiration DateVisits RequestedVisits [id number] Request/ Chief Complaint and Reason for Visit Chief [...] for Visit (unrecogniz ed section and content) ReasonCommentsPainSpecialtyDiagnoses / ProceduresReferred By ContactReferred To ContactInternal Medicine / Sports Medicine Procedures NEW PATIENT Self, Self Betzy Iyer MD [address] [place] [address] Referral IDStatusReasonStart DateExpiration DateVisits RequestedVisits [id number] Request/[id number] reports CSI has worn off and they have not had benefits from PT. Denies accidents or new injuries. S/s and location of pain is the same.ReasonCommentsTremorsReason CommentsMouth LesionsReasonCommentsOral ulcerationMouth lesion getting bigger ReasonCommentsMouth Lesions1 month check mouth lesion Care Teams (unrecognized sec tion and content) Team MemberRelationshipSpecialtyStart DateEnd Date Moreno Ryan, DO [address] [place] [address] PCP - GeneralInternal Medicine09/19/22Team MemberRelationshipSpecialtyStart Date End Date Moreno Ryan, DO [address] [place] [address] PCP - GeneralInternal Medicine09/19/22Team MemberRelationshipSpecialtyStart Date End Date Moreno Ryan DO [address] [place] [facility] [address] PCP - GeneralInternal Medicine09/19/22Team MemberRelationshipSpecialtyStart Date End Date Moreno Ryan MD [address] [place] [address] PCP - GeneralInternal Medicine07/31/24 Jesus Alberto Pagan DO [address] [phone] Referring PhysicianNeurology2Team MemberRelationshipSpecialtyStart DateEnd Date Moreno Ryan MD [address] [place] [address] PCP - GeneralInternal Medicine07/31/24 Jesus Alberto Pagan DO [address] [address] Referring PhysicianNeurology2Team MemberRelationshipSpecialtyStart DateEnd Date Moreno Ryan MD [address] [place] [facility] [address] PCP - GeneralInternal Medicine07/31/24 Jesus Alberto Pagan DO [address] [phone] Referring PhysicianNeurology2Team MemberRelationshipSpecialtyStart DateEnd Date Moreno Ryan MD [address] [place] [address] PCP - GeneralInternal Medicine07/31/24 Jesus Alberto Pagan DO [address] [place] [address] Referring PhysicianNeurology2 Team Status: Active Member Role Status Madhu Ryan DO Primary Care Provider Active Team Status: Inactive Member Role Status Dates Moreno Ryan DO Primary Care Provider Active Start: January 05, 2025 End: January 05enjasmin Ryan DOAttending ProviderActiveStart: January 05, 2025 End: January 05, 2025 Team Status: Active Member Role Status Madhu Ryan DO Primary Care Provider Active Start: January 07, 2025 Moreno Ryan DOAttending ProviderActiveStart: January 07, 2025 Team Status: Inactive Member Role Status Madhu Ryan DO Primary Care Provider Active Start: February 27, 2025 End: February 27enjasmin Ryan DOAttending ProviderActiveStart: February 27, 2025 End: February 27, 2025Team MemberRelationshipSpecialtyStart DateEnd Date Moreno Ryan DO [address] [place] [address] PCP - GeneralInternal Medicine07/31/24 Jesus Alberto Pagan DO [address] [place] [address] Referring PhysicianNeurology2Team MemberRelationshipSpecialtyStart DateEnd Date Moreno Ryan DO [address] [place] [address] PCP - GeneralInternal Medicine07/31/24 Jesus Alberto Pagan DO [address] [place] [address] Referring PhysicianNeurology2Team MemberRelationshipSpecialtyStart DateEnd Date Moreno Ryan, [address] [place] [facility] [address] PCP - GeneralInternal Medicine07/31/24 Jesus Alberto Pagan DO [address] [place] [address] Referring PhysicianNeurology2Team MemberRelationshipSpecialtyStart DateEnd Date Moreno Ryan, [address] [place] [facility] [address] PCP - GeneralInternal Medicine07/31/24 Jesus Alberto Pagan DO [address] [place] [address] Referring PhysicianNeurology2Team MemberRelationshipSpecialtyStart DateEnd Date Moreno Ryan DO [address] [place] [facility] [address] PCP - GeneralInternal Medicine07/31/24 Jesus Alberto Pagan DO [address] [place] [address] Referring PhysicianNeurology2Team MemberRelationshipSpecialtyStart DateEnd Date Moreno Ryan DO [address] [place] [address] PCP - GeneralInternal Medicine07/31/24 Jesus Alberto Pagan DO [address] [place] [address] Referring PhysicianNeurolog08/27/24 (unrecognized sect ion and content) No Status Records FoundNo Status Records FoundNo Status Records FoundNo Status Records Found INFORMATION SOURCE (unrecogn ized section and content) DATE CREATED AUTHOR 09/20/2022 [facility] DATE CREATED AUTHOR AUTHOR'S ORGANIZ ATION 11/01/2022 [facility] DATE CREATED AUTHOR AUTHOR'S ORGANIZ ATION 06/05/2024 [place] DATE CREATED AUTHOR AUTHOR'S ORGANIZ ATION 04/27/2025 [facility] EPIC Goals (unrecognized section and content) [...] BE BASED ON THE PRIMARY CLINICAL RECORDS. [employer] provides no warranty or guarantee of the accuracy or completeness of information in this document.
[2025-05-14 10:23] VITALS: BMI 27.4
[2025-05-14 10:24] VITALS: BP 175/106; PULSE 98; O2SAT 100
[2025-05-14] MEDS: LIDOCAINE HCL 1%-EPINEPHRINE 1:100,000 20 ML MDV INJ (10:33)
[2025-05-14 10:39] VITALS: BP 165/98; PULSE 89; O2SAT 100
[2025-05-14] MEDS: SILVER NITRATE APPLICATOR STICK 1 APPLIC TOPICAL (10:46)
[2025-05-14 11:03] VITALS: BP 155/98; PULSE 78; O2SAT 100
== END 2025-05-14 10:59 | disposition home or self-care (01) ==
LOC: SURGOUT 10:02
PROVIDERS: PCP Internal Medicine; Visit Provider Otolaryngology
PROC: (CPT 40490; principal; 2025-05-14 11:00)
DX: K12.1 Other forms of stomatitis (principal)
CPT/HCPCS: 40490; 88305; 88312